=== PATIENT | female | born 1980 | race Two or more races ===

== ENCOUNTER 2020-05-09 10:42 | Outpatient (REF) | payer SELFPAY | END 2020-05-09 10:43 | disposition home or self-care (01) | LOC: HO.SCI 10:42 | PROVIDERS: Visit Provider Psychiatry & Neurology Neurology | DX: Z13.89 Encounter for screening for other disorder (principal) ==

== ENCOUNTER → 2020-05-21 14:02 | Outpatient (REF) | payer OTHER, SELFPAY | LOC: HO.SL 14:02 | PROVIDERS: PCP Nurse Practitioner Family; Visit Provider Psychiatry & Neurology Neurology | DX: R06.83 Snoring (principal); E66.9 Obesity, unspecified | CPT/HCPCS: 95806 ==

== ENCOUNTER → 2021-02-26 09:33 | Outpatient (BNVA) | payer OTHER, SELFPAY | PROVIDERS: PCP Nurse Practitioner Family; Referring Provider Nurse Practitioner Family; Visit Provider Nurse Practitioner Family | DX: R41.82 Altered mental status, unspecified (principal); G43.109 Migraine with aura, not intractable, without status migrainosus; G47.33 Obstructive sleep apnea (adult) (pediatric); E03.9 Hypothyroidism, unspecified; R53.83 Other fatigue | CPT/HCPCS: 99212 ==

== ENCOUNTER 2021-03-27 13:50 | Outpatient (REF) | payer OTHER, SELFPAY ==
--- NOTE | ~2021-03-27 | MR_ITS ---
EXAMINATION: MR BRAIN WITHOUT AND WITH CONTRAST CLINICAL INFORMATION: Left-sided facial pain and migraines. Vertigo x6 months. COMPARISON: CT scan of the sinuses 05/23/2020. TECHNIQUE: Multiplanar MR imaging of the brain was performed without and with contrast. A total of 10 mL Gadavist was utilized for this examination. FINDINGS: Postcontrast images reveal no abnormal intracranial mass or enhancement. There are small foci of dural ossification over both cerebral convexities with no associated pathological enhancement. There is no intracranial mass effect or midline shift. No abnormal extra-axial collection. Lateral and third ventricles are normal. No hydrocephalus. Midline structures including the cervicomedullary junction are normal. No acute bone marrow signal changes. There is no acute territorial infarct. No pathological magnetic susceptibility artifact. Intracranial vascular flow voids are maintained. There is no mastoid middle ear effusion. Mild paranasal sinus mucosal thickening primarily involving the ethmoid air cells. Globes and orbits are symmetric. MR/MR head/brain wo/w con IMPRESSION: Normal brain MRI.
== END 2021-03-27 13:51 | disposition home or self-care (01) ==
LOC: HO.MRI 13:50
PROVIDERS: Visit Provider Nurse Practitioner Family
DX: R53.83 Other fatigue (principal); G43.109 Migraine with aura, not intractable, without status migrainosus; R41.82 Altered mental status, unspecified
CPT/HCPCS: 70553; A9585

== ENCOUNTER → 2021-03-30 11:21 | Outpatient (BNVA) | payer OTHER, SELFPAY | PROVIDERS: PCP Nurse Practitioner Family; Visit Provider Nurse Practitioner Family | DX: G47.33 Obstructive sleep apnea (adult) (pediatric) (principal); G43.109 Migraine with aura, not intractable, without status migrainosus; R53.83 Other fatigue; R41.82 Altered mental status, unspecified | CPT/HCPCS: 99212 ==

== ENCOUNTER 2021-04-17 06:37 | Outpatient (REF) | payer OTHER, SELFPAY ==
--- NOTE | 2021-04-17 06:42 | EEG_ITS ---
This is a 16-channel EEG with an EKG lead. Patient is reported awake, drowsy, and asleep during the tracing. Background EEG rhythm is 8 to 12 hertz, 5 to 30 microvolt posteriorly, lower amplitude fast anteriorly during wakefulness. The patient transitioned into stage N1 to N2 sleep with no significant abnormality. Photic stimulation does not produce any significant abnormality. Hyperventilation is not performed. No sharp wave spikes or paroxysmal tendency noted. Cardiac lead does not reveal any significant abnormality. IMPRESSION: Unremarkable electroencephalogram including wakefulness and sleep. MD MARA Coburn/YENI / [id number]
== END 2021-04-17 06:38 | disposition home or self-care (01) ==
LOC: HO.NEURO 06:37
PROVIDERS: Visit Provider Nurse Practitioner Family
DX: R53.83 Other fatigue (principal)
CPT/HCPCS: 95819

== ENCOUNTER → 2021-04-27 13:36 | Outpatient (BNVA) | payer OTHER, SELFPAY | PROVIDERS: Visit Provider Nurse Practitioner Family | DX: Z13.89 Encounter for screening for other disorder (principal) ==

== ENCOUNTER → 2021-05-28 10:29 | Outpatient (BNVA) | payer OTHER, SELFPAY | PROVIDERS: PCP Nurse Practitioner Family; Visit Provider Nurse Practitioner Family | DX: G47.33 Obstructive sleep apnea (adult) (pediatric) (principal); G43.109 Migraine with aura, not intractable, without status migrainosus; R41.82 Altered mental status, unspecified; Z79.899 Other long term (current) drug therapy | CPT/HCPCS: 99212 ==

== ENCOUNTER → 2021-07-31 15:11 | Outpatient (BNVA) | payer OTHER, SELFPAY | PROVIDERS: PCP Nurse Practitioner Family; Visit Provider Nurse Practitioner Family | DX: G43.109 Migraine with aura, not intractable, without status migrainosus (principal); G47.33 Obstructive sleep apnea (adult) (pediatric); R41.82 Altered mental status, unspecified; Z79.899 Other long term (current) drug therapy | CPT/HCPCS: 99212 ==

== ENCOUNTER 2022-12-24 11:02 | Outpatient (AMB) | payer MEDICAID, SELFPAY ==
--- NOTE | 2022-12-24 11:03 | A.OFFVIS_ITS ---
Intake Vital Signs 12/24/22 11:04 Height 5 ft 4 in Weight 266 lb BMI 45.7 BP 110/78 Blood Pressure Location Rt brachial Position Sitting Pulse 74 Pulse Source Pulse Oximeter Pulse Oximetry (%) 98 Oxygen Delivery Method Room Air Intake Visit Reasons: Follow up for Migraines - Confirmed Intake Note: Patient presents for follow up migraines. Patient states horrible I'm still getting them I started documenting them i had 8 migraines in the month of September I was throwing up. Allergies diphenhydramine Allergy (Intermediate, Verified 12/24/22 11:08) HIVES Penicillins Allergy (Intermediate, Verified 12/24/22 11:08) HIVES HPI HPI Comments History of Present Illness Details 42-yr-old female presents for f/u visit. Pt has had an increase in her migraine intensity and severity since she has not had access to her Ajovy injections. Last Ajovy inj was in Sep. In the last month, she has had 6-7 severe migraine. The migraine is left sided throbbing pain, left eye pressure. Now has more photophobia, phonophobia, nausea, insomnia, and now some speech changes. Two were a/w passing out and convulsing. The convulsive episodes were her typical convulsive shaking x's 2 minutes. She has stopped Sertraline- made her feel weird. She was given Trazodone 100mg prn insomnia- about a month ago- using prn. The cLonazepam makes her sleep, but cannot wake up in the am.. Her is concerned that she is having seizures in her sleep, she is shaking in her sleep and sometimes biting her tongue. She is compliant with her Trileptal. Pt sttates she never had the 72 hr EEG [facility] Medical History (Updated 12/26/22 @ 22:27 by GIULIA Lynch) delivery due to maternal disorder Surgical History History of section Family History Father Hypertension Mother Hypertension Cancer Diabetes Social History Alcohol intake: never Patient Tobacco Use Status: Never used Tobacco Review of Systems Const All systems reviewed & are unremarkable except as noted in HPI and below Physical Exam Vital Signs: Last Vital Signs Pulse 74 12/24/22 11:04 BP 110/78 12/24/22 11:04 Pulse Ox 98 12/24/22 11:04 Oxygen Delivery Method Room Air 12/24/22 11:04 BMI result Body Mass Index 45.7 Const General: cooperative and no acute distress Orientation/consciousness: patient oriented x3 HEENT Head: Yes normocephalic Resp Effort & Inspection: normal respiratory effort and able to speak in complete sentences Neuro General: patient oriented x3, gait normal and CN's II-XI intact bilaterally Cognition (Neuro): normal cognition Motor exam (neuro): 5/5 motor strength present throughout Psych Appearance: grossly normal Mental Status: mental status grossly normal Speech and movement: Normal speech and movement present Affect: normal affect Attitude: cooperative Thought process: Normal thought process present Thought content: Normal thought content present Insight: Good insight present (Psych) Judgement: Good judgement present (Psych) Assessment & Plan Assessment & Plan (1) Migraine with aura: Code(s): G43.109 - Migraine with aura, not intractable, without status migrainosus (2) Seizure: Code(s): R56.9 - Unspecified convulsions (3) Obstructive sleep apnea: Comment: AHI 12/hr, 82%. Has not started APAP yet. Code(s): G47.33 - Obstructive sleep apnea (adult) (pediatric) (4) Sleep difficulties: Code(s): G47.9 - Sleep disorder, unspecified Plan For episodes of AMS/seizures-like activity: Continue Trileptal 600mg bid. Continue topiramate 100mg qhs. Will re-order 72 hour ambulatory EEG.. Pt should not drive. Future considerations: Increase Trileptal, consider adjuncting w/ another AED such as Fycompa. Referal to epileptologist. ? For migraine prevetion: Resume Ajovy 225mg sc q month for migraine prevention- as this was significantly effective. In the meantime, will bridge w/ samples of Qulipta 60mg qhs. Continue riboflavin 200 mg twice a day- for migraine prevention. Continue magnesium 400 mg daily at bedtime- for migraine prevention. Pt has had genetics consult- for ? FHM- results not currently available. Previously did not tolerate Amitriptyline or Propranolol. For acute migraine tx: Start Naratriptan prn. May use OTC NSAIDs prn. Previous acute tx trials: Sumatriptan- not tolerated. ? ? For SUDHEER/sleep- Stop Trazodone- may worsen headaches. Trial Lorazepam 0.5mg qhs prn. Stop Clonazepam 0.5mg tab- caused am sleepiness. Patient returned APAP.?Will monitor- consider re-initiating order. Samples given today: Ajovy 225 mg/ml autoinjector 1 225mg autoinjector given Instructions- adminitser 225mg sc today- pt will do at home Lot #[id number], Exp 01/08 Qulipta 60mg- 4 boxes (4 tabs/box- total 24 tabs) Instructions: 1 tab qhs until supply completed Lot # [id number], Exp 09/07 Orders: Orders EEG ambulatory 12/24/22 G43.109 - Migraine with aura, not intractable, without status migrainosus, R41.82 - Altered mental status, unspecified, R56.9 - Unspecified convulsions Medications: New naratriptan take 1/2 - 1 tab at onset of headache; if no relief may repeat 1 tab after at least 4 hrs; max = 2 tabs/24 hrs orally PRN; 30 days 12 tabs 6RF migraine headache lorazepam 0.5 mg PO BEDTIME 30 days PRN 30 tabs 3RF insomnia Refilled oxcarbazepine (Trileptal) 600 mg (2 x 300 mg) PO BID 30 days 120 tabs 6RF fremanezumab-vfrm (Ajovy) administer 225mg sc q month 225 mg (1.5 mL) subcut ONCE 30 days 1.5 mL 6RF Coding Level of Care Code Est Pt Level 4 (08021) Diagnoses Migraine with aura G43.109 Seizure R56.9 Obstructive sleep apnea G47.33 Sleep difficulties G47.9
[2022-12-24 11:04] VITALS: BP 110/78; PULSE 74; O2SAT 98; BMI 45.7
== END 2022-12-24 11:49 | disposition home or self-care (01) ==
PROVIDERS: PCP Nurse Practitioner Family; Visit Provider Nurse Practitioner Family
DX: G43.109 Migraine with aura, not intractable, without status migrainosus (principal); R56.9 Unspecified convulsions; G47.33 Obstructive sleep apnea (adult) (pediatric); G47.9 Sleep disorder, unspecified
CPT/HCPCS: 99214

== ENCOUNTER → 2022-12-24 11:02 | Outpatient (BNVA) | payer MEDICAID, SELFPAY | PROVIDERS: PCP Nurse Practitioner Family; Visit Provider Nurse Practitioner Family | DX: G43.109 Migraine with aura, not intractable, without status migrainosus (principal); G47.33 Obstructive sleep apnea (adult) (pediatric); G47.9 Sleep disorder, unspecified; R56.9 Unspecified convulsions | CPT/HCPCS: 99212 ==

== ENCOUNTER 2023-07-21 09:01 | Outpatient (AMB) | payer MEDICAID, SELFPAY ==
--- NOTE | 2023-07-21 09:30 | MHC.OFFVIS ---
Vital Signs 07/21/23 09:31 Height 5 ft 4 in Weight 272 lb BMI 46.7 Pulse 65 Pulse Source Pulse Oximeter Pulse Oximetry (%) 98 Oxygen Delivery Method Room Air Intake Visit Reasons: 3 mo f/u Migraines - CONF w/address Intake Note: Patient presents for 3 month f/u migraines. patient states [id number] are terrible. Allergies diphenhydramine Allergy (Intermediate, Verified 07/21/23 09:32) HIVES Penicillins Allergy (Intermediate, Verified 07/21/23 09:32) HIVES Medication List - Last Reconciled 07/21/23 by Fatemeh Bustamante, GIULIA buspirone 10 mg PO BID cetirizine 10 mg PO DAILY PRN clonazepam 2 mg PO For seizure activity lasting more than 2 minutes, may repeat x1 and call 911 30 days clonazepam 0.25 - 0.5 mg (0.5 - 1 x 0.5 mg) PO BEDTIME PRN 30 days fremanezumab-vfrm (Ajovy) 225 mg (1.5 mL) subcut ONCE 30 days ibuprofen 800 mg PO Q8H levothyroxine 75 mcg PO DAILY lorazepam 0.5 mg PO BEDTIME PRN 30 days magnesium oxide 400 mg PO BEDTIME 30 days methocarbamol 750 mg PO Q8H naproxen 500 mg PO Q12H PRN 30 days naratriptan take 1/2 - 1 tab at onset of headache; if no relief may repeat 1 tab after at least 4 hrs; max = 2 tabs/24 hrs orally PRN; 30 days oxcarbazepine (Trileptal) 600 mg (2 x 300 mg) PO BID 30 days propranolol 10 mg PO BID 30 days riboflavin (vitamin B2) (Vitamin B-2) 200 mg (2 x 100 mg) PO BID 30 days topiramate 100 mg (2 x 50 mg) PO BEDTIME 30 days trazodone 100 mg PO DAILY ubrogepant (Ubrelvy) 50 - 100 mg (0.5 - 1 x 100 mg) PO ONCE PRN 30 days HPI Comments Details: 43-yr-old female presents for f/u visit. Pt denies any significant interval medical changes. She has started seeing a new psychiatric provider at [facility]. Recently started on Buspar for anxiety. Psych is considering starting pt on ADHD tx- as pt is having more memory problems, forgetfulness. She went to [place] to go to a family . She forgot all her medications at home [place] the [place], including her Oxcarbazepine. She had a severe migraine with repeated seizure- was taken to the ER. States usually only has seizure when her migraines are worse. Once she has the seizure, the migraine almost breaks/releases, similar to if she vomits w/ migraine. Went to have 72 EEG- but was told it would not help as seizure activity is r/t migraine. Notes that once went home, the migarines were better when on her med regimen. Pt reports worsening headaches, especially in the last week. Had to miss work this week for the migraine. Having 4-5 migraine days per week. She is compliant w/ Ajovy, though was late this month d/t insurance issue- feels it is not fully effective. She stopped Topiramate- was causing more cognitive difficulties. Naratriptan is not effective. She thinks that the Qulipta 60mg sample we gave her, was more effective than Ajovy has been. [facility] Medical History (Updated 07/21/23 @ 10:32 by GIULIA Lynch) delivery due to maternal disorder Surgical History History of section Family History Father Hypertension Mother Hypertension Cancer Diabetes Social History Alcohol intake: never Patient Tobacco Use Status: Never used Tobacco Physical Exam Vital Signs: Last Vital Signs Pulse 65 07/21/23 09:31 Pulse Ox 98 07/21/23 09:31 Oxygen Delivery Method Room Air 07/21/23 09:31 BMI result Body Mass Index 46.7 Const General: cooperative and no acute distress Orientation/consciousness: patient oriented x3 Resp Effort & Inspection: normal respiratory effort and able to speak in complete sentences Neuro General: patient oriented x3 Cranial nerves: Yes CN's II-XII intact bilaterally Cognition (Neuro): normal cognition Psych Appearance: grossly normal Mental Status: mental status grossly normal Speech and movement: Normal speech and movement present Affect: normal affect Attitude: cooperative Assessment & Plan Assessment & Plan (1) Chronic migraine with aura: Comment: rare visual aura Code(s): G43.109 - Migraine with aura, not intractable, without status migrainosus Category: Medical (2) Seizure: Code(s): R56.9 - Unspecified convulsions Category: Medical (3) Sleep difficulties: Code(s): G47.9 - Sleep disorder, unspecified Category: Medical (4) Cognitive dysfunction: Comment: likely ADHD Code(s): F09 - Unspecified mental disorder due to known physiological condition Category: Medical Plan Reviewed note from pt's new psychiatric provider. Will trial pt on Adderall ER 10mg qam- in hopes this will lessen cognitive difficulties, which may benefit migraine control as well. Reviewed benefits/risks- to keep med secured. Will check in w/ pt in 10 days to assess effect. Will share resources for pt to read on strategies to optimize adult ADHD s/s. F/u w/ psychiatry as scheduled. For episodes of AMS/seizures-like activity: Breakthrough severe Migraine and Seizure while in [place]- likely d/t stress and not taking her medications as they were left at home. Continue Trileptal 600mg bid. Pt may hold topiramate 100mg qhs. Hold 72 hour ambulatory EEG.. Pt should not drive. Future considerations: Increase Trileptal, consider adjuncting w/ another AED such as Fycompa. Referal to epileptologist. ? For migraine prevention: Start Qulipta 60mg qhs- as pt did better on samples of Qulipta. Continue Ajovy 225mg sc q month- however once Qulipta available will stop Ajovy. Continue riboflavin 200 mg twice a day- for migraine prevention. Continue magnesium 400 mg daily at bedtime- for migraine prevention. Pt has had genetics consult- for ? FHM- results not currently available. Previously did not tolerate Amitriptyline or Propranolol. ? For acute migraine tx: Stop Naratriptan prn- ineffective. Trial Eletriptan 40mg prn. May use OTC NSAIDs prn. Previous acute tx trials: Sumatriptan- not tolerated. Narartriptan- ineffective. ? ? For SUDHEER/sleep- Lorazepam 0.5mg qhs prn. Previously tx trials- Pt previously stopped Trazodone- d/t this may worsen headaches. Clonazepam 0.5mg tab- caused am sleepiness. Patient returned APAP.?Will monitor- consider re-initiating ord Medications: New eletriptan take 1 tab at onset of headache; if no relief, may repeat 1 tab after at least 2 hrs; max = 2 tabs/24 hrs PO 30 days 14 tabs 6RF atogepant 60 mg PO DAILY 30 days 30 tabs 6RF dextroamphetamine-amphetamine 10 mg ER (Adderall XR) Partial Fill upon patient request. 10 mg PO QAM 14 days 14 caps 0RF Coding Level of Care Code Est Pt Level 4 (52996) Diagnoses Chronic migraine with aura G43.109 Seizure R56.9 Sleep difficulties G47.9 Cognitive dysfunction F09
[2023-07-21 09:31] VITALS: PULSE 65; O2SAT 98; BMI 46.7
== END 2023-07-21 10:24 | disposition home or self-care (01) ==
PROVIDERS: PCP Nurse Practitioner Family; Visit Provider Nurse Practitioner Family
DX: G43.E09 Chronic migraine with aura, not intractable, without status migrainosus (principal); R56.9 Unspecified convulsions; G47.9 Sleep disorder, unspecified; R41.89 Other symptoms and signs involving cognitive functions and awareness
CPT/HCPCS: 99214

== ENCOUNTER → 2023-07-21 09:01 | Outpatient (BNVA) | payer MEDICAID, SELFPAY | PROVIDERS: PCP Nurse Practitioner Family; Visit Provider Nurse Practitioner Family | DX: G43.109 Migraine with aura, not intractable, without status migrainosus (principal); R56.9 Unspecified convulsions; G47.9 Sleep disorder, unspecified; F09 Unspecified mental disorder due to known physiological condition | CPT/HCPCS: 99212 ==

== ENCOUNTER 2023-12-07 07:38 | Outpatient (AMB) | payer MEDICAID, SELFPAY ==
[2023-12-07 07:50] VITALS: BMI 47.0
--- NOTE | 2023-12-07 07:50 | MHC.OFFVIS ---
Vital Signs 12/07/23 07:50 Height 5 ft 4 in Weight 274 lb BMI 47.0 Intake Visit Reasons: 3 month F/U Intake Note: Patient presents for Allergies diphenhydramine Allergy (Intermediate, Verified 12/07/23 07:52) HIVES Penicillins Allergy (Intermediate, Verified 12/07/23 07:52) HIVES Medication List - Last Reconciled 12/07/23 by GIULIA Lynch atogepant 60 mg PO DAILY 30 days atogepant (Qulipta) 60 mg PO DAILY buspirone 10 mg PO BID buspirone 15 mg PO BID cetirizine 10 mg PO DAILY PRN clonazepam 2 mg PO For seizure activity lasting more than 2 minutes, may repeat x1 and call 911 30 days clonazepam 0.25 - 0.5 mg (0.5 - 1 x 0.5 mg) PO BEDTIME PRN 30 days dextroamphetamine-amphetamine 10 mg ER (Adderall XR) 10 mg PO QAM 14 days ibuprofen 800 mg PO Q8H levothyroxine 75 mcg PO DAILY lorazepam 0.5 mg PO BEDTIME PRN 30 days magnesium oxide 400 mg PO BEDTIME 30 days methocarbamol 750 mg PO Q8H mirabegron ER (Myrbetriq) 25 mg PO DAILY naproxen 500 mg PO Q12H PRN 30 days naratriptan take 1/2 - 1 tab at onset of headache; if no relief may repeat 1 tab after at least 4 hrs; max = 2 tabs/24 hrs orally PRN; 30 days oxcarbazepine (Trileptal) 600 mg (2 x 300 mg) PO BID 30 days propranolol 10 mg PO BID 30 days riboflavin (vitamin B2) (Vitamin B-2) 200 mg (2 x 100 mg) PO BID 30 days rizatriptan 5 - 10 mg (0.5 - 1 x 10 mg) PO Q2H PRN 21 days topiramate 100 mg (2 x 50 mg) PO BEDTIME 30 days trazodone 100 mg PO DAILY ubrogepant (Ubrelvy) 50 - 100 mg (0.5 - 1 x 100 mg) PO ONCE PRN 30 days HPI Comments Details: 43-yr-old female presents for f/u visit of migraine and seizure. Pt denies any significant interval medical changes. Her psychiatrist is now managing her ADHD- now on Adderall XR 20mg qam around 8am- which is helping her focus. She believes she had a seizure in June or July, as she fell on her stairs. This seizure was triggered by a bad headache. She was walking about the stairs, became dizzy, and lost her footing, fell and had a seizure. She is compliant w/ Trileptal at 10am and 10pm- notes that in the past she was previously forgetting a dose or was late taking it, but since being better at taking it every 12 hrs, she is feeling better seizure control. Pt also notes her PCP would like her to revisit her sleep apnea tx- previously dx'd w/ mild SUDHEER but was not able to use it and thus her CPAP was returned. She has had a weight gain of > 80lbs. She has snoring, sleep difficulties, restless/jumpy sleep, tongue/cheek biting, excessive daytime sleepiness- more so on days when she does not take her Adderral, but has constant fatigue even with the Adderall. In August, she had a [facility] ER eval- was given IV Compazine, magnesium, droperidol in addition to dexamethasone- which helped however she did not toelrtae one of the meds- caused a restlessness. Since the last visit, she started Qulipta 60mg po qhs. This has helped to reduce the frequency of her migraines, however she is still having 7 migraine days per month, some very severe where she cannot work. She did not receive the Eletriptan d/t insurance denial. She tried rizatriptan instead, however, this has not been effective. Currently using Aleve migraine- which takes the edge off. Baseline migraine characteristics: Starts as pain in left eye and progresses into the left side of head and if more severe moves into back of head/neck, a/w photophobia, phonophobia, nausea, activity intolerance, when more severe vomiting, dizziness, slowed speech. [facility] Medical History (Updated 12/11/23 @ 19:17 by GIULIA Lynch) delivery due to maternal disorder Surgical History History of section Family History Father Hypertension Mother Hypertension Cancer Diabetes Social History Alcohol intake: never Patient Tobacco Use Status: Never used Tobacco Physical Exam Vital Signs: BMI result Body Mass Index 47.0 Const General: cooperative and no acute distress Orientation/consciousness: patient oriented x3 Resp Effort & Inspection: normal respiratory effort and able to speak in complete sentences Neuro Other: Photophobic General: patient oriented x3 Cranial nerves: Yes CN's II-XII intact bilaterally Cognition (Neuro): normal cognition Gait exam (Neuro): Normal gait present Motor exam (neuro): 5/5 motor strength present throughout Psych Appearance: grossly normal Mental Status: mental status grossly normal Speech and movement: Normal speech and movement present Affect: normal affect Attitude: cooperative Assessment & Plan Assessment & Plan (1) Chronic migraine with aura: Comment: rare visual aura Code(s): G43.109 - Migraine with aura, not intractable, without status migrainosus Category: Medical (2) Seizure: Code(s): R56.9 - Unspecified convulsions Category: Medical (3) Sleep difficulties: Code(s): G47.9 - Sleep disorder, unspecified Category: Medical (4) Cognitive dysfunction: Comment: likely ADHD Code(s): F09 - Unspecified mental disorder due to known physiological condition Category: Medical (5) Snoring: Code(s): R06.83 - Snoring Category: Medical (6) Excessive daytime sleepiness: Comment: [place] sleepiness scale - 12 Code(s): G47.19 - Other hypersomnia Category: Medical (7) BMI 45.0-49.9, adult: Code(s): Z68.42 - Body mass index [BMI] 45.0-49.9, adult Category: Medical Plan Psychiatry is now managing pt's cognitive/mood tx. For episodes of AMS/seizures-like activity: Continue Trileptal 600mg po q 12 hrs. Stressed compliance. Pt may hold topiramate 100mg qhs. Hold 72 hour ambulatory EEG.. Pt should not drive or engage in high risk activities x's 6 months following last seizure activity. Previous tx's: Topiramate worsened cognitive difficulties. ? For migraine prevention: Continue Qulipta 60mg qhs. Continue riboflavin 200 mg twice a day- for migraine prevention. Continue magnesium 400 mg daily at bedtime- for migraine prevention. Pt has had genetics consult- for ? FHM- results not currently available. Previously did not tolerate Amitriptyline or Propranolol. Topiramate worsened cognitive difficulties. Ajovy lost effectiveness. ? For acute migraine tx: Rizatriptan prn- ineffective. Trial Sumatriptan 5mg nasal spray- MR x's 1, as migraine is a/w nausea. Trial Sumatriptan 6mg sc inj, MR in 1 hr- max 12mg/day, as migraine is a/w nausea. Trial Diclofenac 50mg po bid prn. Trial Metoclopramide 5mg q 4hrs prn headache/nausea. May use OTC NSAIDs prn. Previous acute tx trials: Sumatriptan tab- not tolerated. Narartriptan- ineffective. Rizatriptan- ineffective. ? ? For SUDHEER/sleep- Pt advsied to under in-lab sleep study to assess status of sleep apnea, as pt has worsening sleep s/s, snoring, daytime sleepiness in setting of significant weight gain. Lorazepam 0.5mg qhs prn. Previously tx trials- Pt previously stopped Trazodone- d/t this may worsen headaches. Clonazepam 0.5mg tab- caused am sleepiness. Patient previously returned last APAP machine. Will follow-up upon review of above and patient to follow-up in clinic in 4-6 months or sooner prn.? Orders: Orders RT PSG in-lab sleep study 12/07/23 G47.19 - Other hypersomnia, G47.33 - Obstructive sleep apnea (adult) (pediatric), G47.9 - Sleep disorder, unspecified, R06.83 - Snoring, Z68.42 - Body mass index [BMI] 45.0-49.9, adult Medications: New sumatriptan 5 mg/actuation into one nostril; if headache remains, may repeat dose into other nostril once after at least 2 hours 5 mg intranasal Q2-4H 30 days PRN 6 ea 3RF migraine headache MDD 40mg/day metoclopramide HCl 5 mg PO Q4-6H 30 days PRN 30 tabs 3RF migraine, nausea and vomiting insulin syringe-needle U-100 w/ sumatriptan solution. As directed 50 ea 5RF sumatriptan succinate may repeat x's 1 in 1 hr 6 mg (0.5 mL) subcut ONCE 28 days PRN 10 mL 3RF migraine headache MDD 12mg diclofenac potassium 50 mg PO BID 30 days PRN 60 tabs 3RF migraine headache Discontinued naproxen Discontinued Reason: Doctor's Order 500 mg PO Q12H 30 days PRN 30 tabs 6RF for headache naratriptan Discontinued Reason: Doctor's Order take 1/2 - 1 tab at onset of headache; if no relief may repeat 1 tab after at least 4 hrs; max = 2 tabs/24 hrs orally PRN; 30 days 12 tabs 6RF migraine headache rizatriptan max 2 tabs per day or 4 tabs per week Discontinued Reason: Doctor's Order 5 - 10 mg (0.5 - 1 x 10 mg) PO Q2H 21 days PRN 12 tabs 3RF migraine headache Coding Level of Care Code Est Pt Level 4 (81248) Diagnoses Chronic migraine with aura G43.109 Seizure R56.9 Sleep difficulties G47.9 Cognitive dysfunction F09 Snoring R06.83 Excessive daytime sleepiness G47.19 BMI 45.0-49.9, adult Z68.42
== END 2023-12-07 08:49 | disposition home or self-care (01) ==
PROVIDERS: PCP Nurse Practitioner Family; Visit Provider Nurse Practitioner Family
DX: G43.109 Migraine with aura, not intractable, without status migrainosus (principal); R56.9 Unspecified convulsions; G47.9 Sleep disorder, unspecified; R41.89 Other symptoms and signs involving cognitive functions and awareness; R06.83 Snoring; G47.19 Other hypersomnia; E66.9 Obesity, unspecified; Z68.42 Body mass index [BMI] 45.0-49.9, adult
CPT/HCPCS: 99214

== ENCOUNTER → 2023-12-07 07:38 | Outpatient (BNVA) | payer MEDICAID, SELFPAY | PROVIDERS: PCP Nurse Practitioner Family; Visit Provider Nurse Practitioner Family | DX: G43.109 Migraine with aura, not intractable, without status migrainosus (principal); G47.9 Sleep disorder, unspecified; G47.19 Other hypersomnia; R56.9 Unspecified convulsions; R06.83 Snoring; F09 Unspecified mental disorder due to known physiological condition | CPT/HCPCS: 99212 ==

== ENCOUNTER 2024-06-28 08:02 | Outpatient (AMB) | payer MEDICAID, SELFPAY ==
--- OUTSIDE RECORDS SUMMARY | 2024-06-28 08:05 | XMS_ITS | Encounter Summary ---
Author Organization [facility] Address [address] [facility] [place] [address] Care Team Providers Care Telemetry Technician Name Role Phone Riya Mcmanus GIULIA Primary Care Provider [phone] Reason for Referral * Radiology Services (Routine) - New Request Specialty Diagnoses / Procedures Referred By Lj mcneil Referred To Contact Radiology Diagnoses Laboratory tests ordered as part of a complete physical exam (CPE) Procedures REFERRAL FOR MAMMOGRAM Inez Liu FNP [address] [place] [address] Phone: tel: fax: Referral ID Status Reason Start Date Expiration Date Visits Requested Visits Authorized [id number] New Request Continuity of Care 06/27/2024 08/26/2024 1 1 * Gynecology (Routine) - New Request Specialty Diagnoses / Procedures Referred By Lj mcneil Referred To Contact Gynecology Diagnoses Laboratory tests ordered as part of a complete physical exam (CPE) Inez Liu FNP [address] [place] [address] Phone: tel: fax: Referral ID Status Reason Start Date Expiration Date Visits Requested Visits Authorized [id number] New Request Evaluate and Treat 06/27/2024 06/27/2025 1 1 Reason for Visit * Reason Comments Complete Physical Exam Encounter Details Date Type Department Care Team (Late st Contact Info) Description 06/27/2024 8:40 AM EDT [facility] [address] [place] [address] Alexa Inez, GIULIA [address] [place] [address] Laboratory tests ordered as part of a complete physical exam (CPE) (Primary Dx); Hypothyroidism, unspecified type; Screening for colon cancer Social History Tobacco Use Types Packs/Day Years Used Date Smoking Tobacco: Never Passive Smoke Exposure: Never Smokeless Tobacco: Never Tobacco Cessation:Counseling Given: Not Answered Alcohol Use Standard Drinks/Week Comments Not Currently 0 (1 standard drink = 0.6 oz pur e alcohol) Social Connections Answer Date Recorded Connectedness 1 09/12/2023 Financial Resource Strain Answer Date R ecorded Financial Resource Strain 1 2023 Stress Answer Date Recorded Stress 1 09/12/2023 Physical Activity Answer Date Recorded Physical Activity 0 10/20/2018 Food Insecurity Answer Date Recorded Food 2 11/18/2023 Transportation Needs Answer Date Record ed Transportation 2 11/18/2023 Housing Stability Answer Date Recorded Housing 2 11/18/2023 Safety and Environment Answer Date Guilherme rded Safety 1 06/27/2024 Utilities Answer Date Recorded Utilities 2 11/18/2023 Employment Answer Date Recorded Stress 0 10/20/2018 Comments No Sex and Gender Information Value Date Recorded Sex Assigned at Female 07/05/2018 11:19 AM PDT Legal Sex Female 10:29 AM PDT Gender Identity Female 07/05/2018 11:19 AM PDT Sexual Orientation Straight 07/05/2018 11 :19 AM PDT documented as of this encounter Last Filed Vital Signs Vital Sign Reading Time Taken Comments Blood Pressure 122/86 06/27/2024 8:40 AM EDT Pulse 87 06/27/2024 8:40 AM EDT Temperature 36.8 ??C (98.3 ??F) 06/27/2024 8:40 AM ED T Respiratory Rate 18 06/27/2024 8:40 AM EDT Oxygen Saturation 98% 06/27/2024 8:40 AM EDT Inhaled Oxygen Concentration - - Weight 118.8 kg (262 lb) 06/27/2024 8:40 AM EDT Height 165.1 cm (5' 5 ) 06/27/2024 8:40 AM EDT Body Mass Index 43.6 06/27/2024 8:40 AM EDT documented in this encounter Progress Notes * Inez Liu, GIULIA - 06/27/2024 8:40 AM EDT Demetra Blanchard is a 43 year old female here for CPE Complete Physical Exam Deputy Clerk: None, provider speaks patient's familiar language Concerns: Carpal tunnel surgery bilateral wrist and right elbow 3 weeks ago healing well Soft bm after each meals for the past 16 years; no abdominal pain, no nausea or vomiting Thyroid US negative ROS noncontributory unless otherwise mentioned above Health Maintenance: Hospitalizations within the last year:na Colonoscopy: cologuard Mammogram: refer Last Pap Smear: refer Patient's last menstrual period was 04/24/2024. Eye Exam:up to date Dental Visit: @[id number]@ Weight management:BMI follow up plan: The patient was counseled regarding nutrition and physical activity. Tobacco Intervention:provided smoking cessation counseling Depression screen: PHQ-9 Total Score (Auto Calculated) 0 at 06/27/2024 8:40 AM 06/27/2024 8:40 AM Did patient decline PHQ screening? No Little interest or pleasure in doing things Not at all Feeling down, depressed or hopeless [include irritable if under 18] Not at all PHQ2 Score 0 Little interest or pleasure in doing things Not at all Feeling down, depressed or hopeless [include irritable if under 18] Not at all Trouble falling or staying asleep, or sleeping too much Not at all Feeling tired or having little energy Not at all Poor appetite or overeating Not at all Feeling bad about yourself - or that you are a failure or have let yourself or your family down Notat all Trouble concentrating on things, such as reading the newspaper or watching television? Not at all Moving or speaking so slowly that other people could have noticed? Or the opposite - being so fidgety or restless that you have been moving around a lot more than usual Not at all Thoughts you would be better off or of hurting yourself in some way Not at all If you checked off any problems, how difficult have these problems made it for you to do your work,take care of things at home, or get along with other people? Not difficult at all PHQ-9 Total Score (Auto Calculated) 0 Depression Severity: None-minimal Depression screening:DEPRESSION FU PROVIDED ([facility]): Assessed, follow-up as needed The 10-year ASCVD risk score (Lan RAMOS, et al., 2019) is: 0.4% Patient Active Problem List Diagnosis Asthma ([facility]) Hypothyroidism Thyroid nodule Family history of breast cancer Concentration deficit Primary insomnia Chronic migraine without aura without status migrainosus, not intractable Posttraumatic stress disorder Low back pain at multiple sites Stress incontinence Cervical pain Chronic bilateral thoracic back pain Positive QuantiFERON-TB Gold test Current mild episode of major depressive disorder without prior episode ([facility]) Major depressive disorder, recurrent episode, moderate, with severe anxious distress ([facility]) Tricompartment osteoarthritis of both knees SUDHEER on CPAP Moderate persistent asthma with status asthmaticus ([facility]) Class 3 severe obesity due to excess calories with serious comorbidity and body mass index (BMI) of40.0 to 44.9 in adult Past Surgical History: Procedure Laterality Date SECTION 2014 Current Outpatient Medications on File Prior to Visit Medication Sig Dispense Refill phentermine (ADIPEX-P) 37.5 mg tablet Take 1 Tablet by mouth every morning before breakfast 30 Tablet 2 busPIRone (BUSPAR) 15 mg tablet Take 1 Tablet by mouth 3 (three) times daily for 90 days 90 Tablet 2 dextroamphetamine-amphetamine (ADDERALL XR) 30 mg 24 hr capsule Take 1 Capsule by mouth every morning for 90 days 90 Capsule 0 OXcarbazepine (TRILEPTAL) 600 mg tablet Take 1 Tablet by mouth 2 (two) times daily 60 Tablet 1 fluoride, sodium, (SF 5000 PLUS) 1.1 % crea Place in mouth once daily apply a thin ribbon on toothbrush. [place] thoroughly once daily for two minutes, preferably at bedtime. After use expectorate. Forbest results, do not eat, drink, or rinse for 30 minutes. 51 g 0 levalbuterol tartrate (XOPENEX HFA) 45 mcg/actuation inhaler Inhale 2 Puffs into the lungs every 4 (four) hours as needed for wheezing or shortness of breath 15 g 1 ammonium lactate (AMLACTIN) 12 % cream APPLY TO FEET DOS VECES AL D A Authorized by: REDD BUSTILLOS celecoxib (CELEBREX) 200 mg capsule TAKE 1 CAPSULE BY MOUTH ONCE DAILY NEEDED FOR PAIN TAKE WITHFOOD DO NOT TAKE ADDITIONAL NSAIDS Authorized by: RACHAEL ABDI MYRBETRIQ 50 mg Tb24 TOME 1 TABLETA POR V A ORAL TODOS LOS D DO NOT CRUSH OR CHEW Authorized by:SUMANTH DAO pregabalin (LYRICA) 75 mg capsule TAKE 1 CAPSULE TWICE A DAY BY ORAL ROUTE DIRECTED FOR 30 DAYS,FOR PAIN. Authorized by: RACHAEL ABDI BREO ELLIPTA 100-25 mcg/dose dsdv INHALE 1 PUFF INTO THE LUNGS ONCE DAILY RINSE MOUTH AFTER USE 60 Each 1 omeprazole (PRILOSEC) [address] capsule TAKE 1 CAPSULE BY MOUTH 2 (TWO) TIMES DAILY NEEDED FOR HEARTBURN 180 Capsule 1 BD LUER-YAKOV SYRINGE 3 mL 25 x 5/8 syrg USE WITH SUMATRIPTAN DIRECTED Authorized by: NATHEN DENNIS diclofenac potassium (CATAFLAM) 50 mg tablet TAKE 1 TABLET BY MOUTH TWICE DAILY NEEDED FOR MIGRAINE HEADACHE Authorized by: NATHEN DENNIS hydrocortisone 2.5 % ointment See Admin Instructions PLEASE SEE ATTACHED FOR DETAILED DIRECTIONS Authorized by: REDD BUSTILLOS ketoconazole (NIZORAL) 2 % shampoo APPLY TO SCALP TWICE A WEEK, LEAVE ON FOR 5 MIN, THEN RINSE Authorized by: REDD BUSTILLOS metroNIDAZOLE (METROCREAM) 0.75 % cream APLIQUE A LA ALANNA DOS VECES AL D A Authorized by: REDD BUSTILLOS SUMAtriptan (IMITREX) 5 mg/actuation nasal spray USE 5MG NASALLY EVERY 2-4HRS NEEDED FOR MIGRAINE, MAX DAILY DOSE 40MG/DAY. Authorized by: NATHEN DENNIS SUMAtriptan (IMITREX) 6 mg/0.5 mL injection See Admin Instructions PLEASE SEE ATTACHED FOR DETAILEDDIRECTIONS Authorized by: NATHEN DENNIS triamcinolone (KENALOG) 0.1 % lotion APPLY TO SCALP DOS VECES AL D A CUANDO SEA NECESARIO FOR FLARES, DECREASE SYMPTOMS IMPROVE Authorized by: REDD BUSTILLOS melatonin 5 mg tab TAKE 2 TABLETS BY MOUTH NIGHTLY AT BEDTIME NEEDED (SLEEP) FOR UP TO 180 DAYS 360 Tablet 0 atogepant (QULIPTA) 60 mg tab Take 60 mg by mouth daily oxymetazoline (NASAL DECONGESTANT, OXYMETAZL,) 0.05 % nasal spray Place 2 Sprays into the nostril(s) 2 (two) times daily as needed for other reason (nasal bleed) 30 mL 2 acetaminophen (TYLENOL) 500 mg tablet TAKE 2 TABLETS BY MOUTH EVERY 8 HOURS NEEDED FOR PAIN 180 Tablet 0 cetirizine (ZYRTEC) 10 mg tablet TOME NOEL TABLETA TODOS LOS SANCHEZ 90 Tablet 1 fluticasone propionate (FLONASE) 50 mcg/actuation nasal spray Place 1 Moran in both nostrils 2 (two) times daily 16 g 2 No current facility-administered medications on file prior to visit. Allergies Allergen Reactions Diphenhydramine Hcl SOB Penicillin G SOB Social History Occupational History Not on file Tobacco History Tobacco Use Smoking Status Never Passive exposure: Never Smokeless Tobacco Never Social History Substance and Sexual Activity Sexual Activity Not on file Social History Substance and Sexual Activity Drug Use Not Currently Having periods Objective: Vitals: 06/27/24 0840 BP: 122/86 Pulse: 87 Resp: 18 Temp: 98.3 ??F (36.8 ??C) TempSrc: Oral SpO2: 98% Weight: 262 lb (118.8 kg) Height: 5' 5 (1.651 m) Body mass index is 43.6 kg/m??. Physical Exam Constitutional: Appearance: Normal appearance. HENT: Head: Normocephalic and atraumatic. Right Ear: Tympanic membrane, ear canal and external ear normal. Left Ear: Tympanic membrane, ear canal and external ear normal. Nose: Nose normal. Mouth/Throat: Mouth: Mucous membranes are moist. Eyes: Pupils: Pupils are equal, round, and reactive to light. Cardiovascular: Rate and Rhythm: Normal rate and regular rhythm. Pulmonary: Effort: Pulmonary effort is normal. Breath sounds: Normal breath sounds. Abdominal: General: Bowel sounds are normal. Palpations: Abdomen is soft. Musculoskeletal: General: Normal range of motion. Cervical back: Normal range of motion. Skin: General: Skin is warm. Comments: Incision site dry and intact Neurological: General: No focal deficit present. Mental Status: She is alert and oriented to person, place, and time. Psychiatric: Mood and Affect: Mood normal. Assessment and Plan: Z00.00 Laboratory tests ordered as part of a complete physical exam (CPE) (primary encounter diagnosis) Plan : BLOOD COUNT COMPLETE AUTO&AUTO DIFRNTL WBC COMPREHENSIVE METABOLIC PANEL LIPIDS W RFLX TO DIRECT LDL HGA1C W/EAG TSH W/RFLX FREE T4 URINALYSIS, COMPLETE W/REFLEX TO CULTURE HEPB VACCINE ADULT 2/4 DOSE SCHEDULE FOR IM USE REFERRAL TO GYNECOLOGY REFERRAL FOR MAMMOGRAM LAB COLOGUARD?? COLON CANCER SCREEN AMB E03.9 Hypothyroidism, unspecified type Plan : LEVOTHYROXINE 75 MCG TABLET - TOME 1 TABLETA POR VIA ORAL TODOS LOS SANCHEZ Z12.11 Screening for colon cancer Plan : LAB COLOGUARD?? COLON CANCER SCREEN AMB Plan I am having Demetra Blanchard start on L. acidophilus/Bifid. animalis and psyllium. I am alsohaving her maintain her fluticasone, cetirizine, acetaminophen, oxymetazoline, Qulipta, melatonin, diclofenac potassium, hydrocortisone, ketoconazole, metroNIDAZOLE, SUMAtriptan, SUMAtriptan, BD Luer- Yakov Syringe, triamcinolone, omeprazole, Breo Ellipta, ammonium lactate, Myrbetriq, pregabalin, celecoxib, levalbuterol tartrate, fluoride (sodium), phentermine, busPIRone, dextroamphetamine-amphetamine, OXcarbazepine, and levothyroxine. Stay away from foods that trigger symptoms. Eat high-fiber foods. Drink plenty of fluids. Exercise regularly. Get enough sleep. Assessment and plan discussed with patient. Patient agrees with plan. Questions answered. Return in about 3 months (around 09/27/2024). documented in this encounter Miscellaneous Notes * Patient Instructions - GIULIA Falcon - 06/27/2024 9:06 AM EDT If you are not able to keep your appointment please call 24-48 hours before your appointment to cancel or reschedule. documented in this encounter Plan of Treatment Upcoming Encounters Date Type Department Care Team (Late st Contact Info) Description 07/19/2024 11:00 AM EDT Telemedicine Visit [address] [phone] Raul Eldridge, RD [address] [place] [address] 07/19/2024 11:30 AM EDT /MH Visits [address] [phone] Mindi Montoya, PMHNP [address] [place] [address] 08/01/2024 9:00 AM EDT Office Visit [address] [phone] Inez Liu FNP [facility] [place] [address] 10/23/2024 9:00 AM EDT Office Visit [address] [phone] Robinson Jiang [address] [place] [phone] Scheduled Orders Name Type Priority Associated Diagnoses Orde r Schedule REFERRAL FOR MAMMOGRAM Imaging Routine Laboratory tests ordered as part of a complete physical exam (CPE) Ordered: 06/27/2024 LAB COLOGUARD?? COLON CANCER SCREEN AMB Lab Routine Laboratory tests ordered as part of a complete physical exam (CPE) Screening for colon cancer Ordered: 06/27/2024 Scheduled Referrals Name Type Priority Associated Diagnoses Orde r Schedule REFERRAL TO GYNECOLOGY Referral Routine Laboratory tests ordered as part of a complete physical exam (CPE) Ordered: 06/27/2024 documented as of this encounter Procedures Procedure Name Priority Date/Time Associated Diagnosis Comments HGA1C W/EAG Routine 06/27/2024 9:34 AM EDT Laboratory tests ordered as part of a complete physical exam (CPE) TSH W/RFLX FREE T4 Routine 06/27/2024 9: 34 AM EDT Laboratory tests ordered as part of a complete physical exam (CPE) LIPIDS W RFLX TO DIRECT LDL Routine 06/27/2024 9:34 AM EDT Laboratory tests ordered as part of a complete physical exam (CPE) URINALYSIS, COMPLETE W/REFLEX TO CULTURE Routine 06/27/2024 9:34 AM EDT Laboratory tests ordered as part of a complete physical exam (CPE) RFLX - REFLEXIVE URINE CULTURE Routine 06/27/2024 9:34 AM EDT BLOOD COUNT COMPLETE AUTO&AUTO DIFRNTL WBC Routine 06/27/2024 9:34 AM EDT Laboratory tests ordered as part of a complete physical exam (CPE) COMPREHENSIVE METABOLIC PANEL Routine 06/27/2024 9:34 AM EDT Laboratory tests ordered as part of a complete physical exam (CPE) documented in this encounter Results * RFLX - REFLEXIVE URINE CULTURE (06/27/2024 9:34 AM EDT) REFLEXIVE URINE CULTURE See Below [employer] [facility] Comment:NO CULTURE INDICATED 06/27/2024 9:34 AM EDT 06/27/2024 9:35 AM EDT Narrative [facility] [employer] [facility] - 06/28/2024 6:32 AM EDT FASTING:YES Inez PLATT LAB - NO BLOOD DRAW Edited Result - Final [facility] [address] [address], [employer] [address] [address] * (ABNORMAL) URINALYSIS, COMPLETE W/REFLEX TO CULTURE (06/27/2024 9:34 AM EDT) COLOR DARK YELLOW YELLOW [facility] APPEARANCE TURBID(A) CLEAR [facility] SPECIFIC GRAVITY 1.035 1.001 - 1.035 [facility] URINE PH < OR = 5.0(A) 5.0 - 8.0 [facility] GLUCOSE NEGATIVE NEGATIVE [facility] BILIRUBIN NEGATIVE NEGATIVE [facility] [place] [employer] KETONES NEGATIVE NEGATIVE [facility] OCCULT BLOOD 3+(A) NEGATIVE [facility] URINE PROTEIN 2+(A) NEGATIVE [facility] NITRITE NEGATIVE NEGATIVE [facility] LEUKOCYTE ESTERASE NEGATIVE NEGATIVE [facility] URINE LEUKOCYTES 0-5 0 - 5 /HPF [facility] RBC > OR = 60(A) < OR = 2 [facility] SQUAMOUS EPITHELIAL CELLS 10-20(A) < OR = 5 /HPF [facility] BACTERIA MANY(A) NONE SEEN [facility] CALCIUM OXALATE CRYSTALS MANY(A) NONE OR FEW [facility] URIC ACID CRYSTALS FEW NONE OR FEW [employer] HYALINE CAST 6-10(A) NONE SEEN /LPF [facility] SEE NOTE See Below [employer] [facility] Comment: This urine was analyzed for the presence of WBC, RBC, bacteria, casts, and other formed elements. Only those elements seen were reported. Urine Urine specimen / Unknown 06/27/2024 9:34 AM EDT 06/27/2024 9:35 AM EDT Narrative [facility] - 06/28/2024 6:32 AM EDT FASTING:YES Inez [facility]ATT [facility] - NO BLOOD DRAW Edited Result - Final [facility] [address] [address], [facility] [address] [address] * TSH W/RFLX FREE T4 (06/27/2024 9:34 AM EDT) TSH W/REFLEX TO FT4 1.50 0.40 - 4.50 mIU/L [facility] Comment: ?Reference Range ?> or = 20 Years ??0.40-4.50 ? Ranges ?First trimester ?0.26-2.66 ?Second trimester ?? 0.55-2.73 ?Third trimester ?0.43-2.91 Blood Blood / Unknown 06/27/2024 9 :34 AM EDT 06/27/2024 9:35 AM EDT Narrative [facility] - 06/28/2024 6:32 AM EDT FASTING:YES Inez [facility]ATT [facility] - BLOOD DRAW Ameya benson Result - Final [facility] [address] [place] [address], [facility] [address] [place] [phone] * HGA1C W/EAG (06/27/2024 9:34 AM EDT) HEMOGLOBIN A1C 5.4 <5.7 % [employer] Comment: For the purpose of screening for the presence of diabetes: <5.7% ? Consistent with the absence of diabetes 5.7-6.4% ?Consistent with increased risk for diabetes ?(prediabetes) > or =6.5% ??Consistent with diabetes This assay result is consistent with a decreased risk of diabetes. Currently, no consensus exists regarding use of hemoglobin A1c for diagnosis of diabetes in children. According to [place] Diabetes Association (ADA) guidelines, hemoglobin A1c <7.0% represents optimal control in non- diabetic patients. Different metrics may apply to specific patient populations. Standards of Medical Care in Diabetes(ADA). ?? EAG (MG/DL) 108 mg/dL [facility] [employer] EAG (MMOL/L) 6.0 mmol/L [employer] D [employer] Blood Blood / Unknown 06/27/2024 9 :34 AM EDT 06/27/2024 9:35 AM EDT Narrative [facility] - 06/28/2024 6:32 AM EDT FASTING:YES us Inez [facility] - BLOOD DRAW Ameya benson Result - Final [facility] [address] [address], [facility] [address] [address] * LIPIDS W RFLX TO DIRECT LDL (06/27/2024 9:34 AM EDT) [facility] Signature CHOLESTEROL, TOTAL 165 <200 mg/dL [facility] HDL CHOLESTEROL 60 > OR = 50 mg/dL [facility] TRIGLYCERIDES 127 <150 mg/dL [facility] LDL-CHOLESTEROL 83 99 mg/dL (calc) [facility] Comment: Reference range: <100 Desirable range <100 mg/dL for primary prevention; ?? <70 mg/dL for patients with CHD or diabetic patients with > or = 2 CHD risk factors. LDL-C is now calculated using the Izaiah-Abi calculation, which is a validated novel method providing better accuracy than the Friedewald equation in the estimation of LDL-C. Izaiah SS et al. HUNG. 2013;310(19): 4201-9957 (http://education.YoQueVos/faq/IUM702) CHOL/HDLC RATIO 2.8 <5.0 (calc) [facility] NON-HDL CHOLESTEROL 105 <130 mg/dL (calc) [facility] Comment: For patients with diabetes plus 1 major ASCVD risk factor, treating to a non-HDL-C goal of <100 mg/dL (LDL-C of <70 mg/dL) is considered a therapeutic option. Blood Blood / Unknown 06/27/2024 9 :34 AM EDT 06/27/2024 9:35 AM EDT Narrative [employer] [facility] - 06/28/2024 6:32 AM EDT FASTING:YES us Inez PLATT LAB - BLOOD DRAW Fin al Result [facility] [address] [address], [facility] [address] [place] [address] * COMPREHENSIVE METABOLIC PANEL (06/27/2024 9:34 AM EDT) [facility] GLUCOSE 90 65 - 99 mg/dL [facility] Comment: ?Fasting reference interval UREA NITROGEN (BUN) 15 7 - 25 mg/dL [facility] CREATININE (blood) 0.63 0.50 - 0.99 mg/dL [facility] EGFR 112 > OR = 60 mL/min/1. 73m2 [facility] BUN/CREATININE RATIO SEE NOTE: [facility] Comment: ?? Not Reported: BUN and Creatinine are within ?? reference range. ? SODIUM 136 135 - 146 mmol/L [facility] POTASSIUM 3.5 3.5 - 5.3 mmol/L [facility] CHLORIDE 104 98 - 110 mmol/L [facility] CARBON DIOXIDE 26 20 - 32 mmol/L [facility] CALCIUM 9.0 8.6 - 10.2 mg/dL [facility] PROTEIN, TOTAL 7.6 6.1 - 8.1 g/dL [facility] ALBUMIN 4.2 3.6 - 5.1 g/dL [facility] GLOBULIN 3.4 1.9 - 3.7 g/dL (calc) [facility] ALBUMIN/GLOBULI N RATIO 1.2 1.0 - 2.5 (calc) [facility] BILIRUBIN, TOTAL 0.3 0.2 - 1.2 mg/dL [facility] ALKALINE PHOSPHATASE 89 31 - 125 U/L [facility] AST 12 10 - 30 U/L [facility] ALT 15 6 - 29 U/L [facility] Blood Blood / Unknown 06/27/2024 9 :34 AM EDT 06/27/2024 9:35 AM EDT Narrative [employer] [facility] - 06/28/2024 6:32 AM EDT FASTING:YES Inez TORRESP LAB - BLOOD DRAW Fin al Result [facility] [address] [address], [facility] [address] [place] [address] * (ABNORMAL) BLOOD COUNT COMPLETE AUTO&AUTO DIFRNTL WBC (06/27/2024 9:34 AM EDT) Pathologist [facility] WHITE BLOOD CELL COUNT 6.4 3.8 - 10.8 Thousand/ uL [employer] RED BLOOD CELL COUNT 4.08 3.80 - 5.10 Million/u L [employer] HEMOGLOBIN 11.8 11.7 - 15.5 g/dL [facility] HEMATOCRIT 37.1 35.0 - 45.0 % [employer] MCV 90.9 80.0 - 100.0 fL [employer] MCH 28.9 27.0 - 33.0 pg [employer] MCHC 31.8(L) 32.0 - 36.0 g/dL [employer] Comment: For adults, a slight decrease in the calculated MCHC value (in the range of 30 to 32 g/dL) is most likely not clinically significant; however, it should be interpreted with caution in correlation with other red cell parameters and the patient's clinical condition. RDW 14.3 11.0 - 15.0 % [employer] PLATELET COUNT 338 140 - 400 Thousand/ uL [employer] MPV 9.9 7.5 - 12.5 fL [employer] ABSOLUTE NEUTROPHILS 3,187 1,500 - 7,800 cells/uL [employer] ABSOLUTE LYMPHOCYTES 2,554 850 - 3,900 cells/uL [employer] ABSOLUTE MONOCYTES 448 200 - 950 cells/uL [employer] ABSOLUTE EOSINOPHILS 141 15 - 500 cells/uL [employer] ABSOLUTE BASOPHILS 70 0 - 200 cells/uL [employer] NEUTROPHILS PCT 49.8 % [facility] [employer] LYMPHOCYTES 39.9 % [facility] MONOCYTES 7.0 % [facility] EOSINOPHILS 2.2 % [facility] [employer] BASOPHILS 1.1 % [facility] Blood Blood / Unknown 06/27/2024 9 :34 AM EDT 06/27/2024 9:35 AM EDT Narrative [facility] - 06/28/2024 6:32 AM EDT FASTING:YES Inez PLATT LAB - BLOOD DRAW Ameya benson Result - Final [facility] [address] [address], [facility] [facility] [address] [place] [address] documented in this encounter Visit Diagnoses Diagnosis Laboratory tests ordered as part of a complete physical exam (CPE)- Primary Hypothyroidism, unspecified type Screening for colon cancer Special screening for malignant neoplasms, colon documented in this encounter Additional Health Concerns Assessment Noted Time PHQ-9 Depression Total Score: 0 06/28/19 25 8:40 AM PDT documented as of this encounter Care Teams Telemetry Technician Relationship Specialty Start Date End Date Riya Mcmanus FNP [address] [place] [id number] PCP - General Internal Medicine 07/05/18 documented as of this encounter
--- OUTSIDE RECORDS SUMMARY | 2024-06-28 08:05 | XMS_ITS ---
Author Organization [facility] Address [address] [place] [address] Care Team Providers Care Screw Machine Operator Single Spindle Name Role Phone Riya McmanusP Primary Care Provider [phone] Asthma Program Status:Enrolled (Active) Start date:02/02/2024 Enrollment date:02/02/2024 Case Team Name Relationship Phone Beto Parrish PharmD (Responsible Staff) [phone] Continued Care and Services Coordination
--- OUTSIDE RECORDS SUMMARY | 2024-06-28 08:05 | XMS_ITS | Encounter Summary ---
Author Organization [facility] Address [address] [place] [address] Care Team Providers Care Die Sinking Machine Operator Name Role Phone Riya Mcmanus [facility] Primary Care Provider [phone] Encounter Details Date Type Department Care Team ([facility] st Contact Info) Description 10/02/2021 Dental Interim Note [facility] [address] [place] [phone] [facility] [address] [place] [address] Social History Tobacco Use Types Packs/Day Years Used Date Smoking Tobacco: Never Smokeless Tobacco: Never Alcohol Use Standard Drinks/Week Comments Not Currently 0 (1 standard drink = 0.6 oz pur e alcohol) Social Connections Answer Date Recorded Social Connections and Isolation 2 10/31/2020 Financial Resource Strain Answer Date R ecorded Financial Resource Strain 0 2020 Stress Answer Date Recorded Stress 0 10/31/2020 Physical Activity Answer Date Recorded Physical Activity 0 10/20/2018 Food Insecurity Answer Date Recorded Food 0 10/31/2020 Transportation Needs Answer Date Record ed Transportation 0 10/31/2020 Housing Stability Answer Date Recorded Housing 0 10/31/2020 Safety and Environment Answer Date Guilherme rded Safety 1 10/31/2020 Utilities Answer Date Recorded Utilities 0 10/31/2020 Employment Answer Date Recorded Stress 0 10/20/2018 Comments No Sex and Gender Information Value Date Recorded Sex Assigned at Female 07/05/2018 11:19 AM PDT Legal Sex Female 10:29 AM PDT Gender Identity Female 07/05/2018 11:19 AM PDT Sexual Orientation Straight 07/05/2018 11 :19 AM PDT COVID-19 Exposure Response Date Recorded In the last 10 days, have yo u been in contact with someone who was confirmed or suspected to have Coronavirus/COVID-19? No / Unsure 09/09/2021 3:47 PM EDT documented as of this encounter Plan of Treatment Upcoming Encounters Date Type Department Care Team (Late st Contact Info) Description 07/19/2024 11:00 AM EDT Telemedicine Visit [address] [phone] Raul Eldridge, [address] [place] [address] 07/19/2024 11:30 AM EDT /MH Visits [address] [phone] Mindi Montoya, PMHNP [address] [place] [address] 08/01/2024 9:00 AM EDT Office Visit [address] [phone] Inez Liu FNP [address] [place] [address] 10/23/2024 9:00 AM EDT Office Visit [facility] [address] [place] [phone] Robinson Jiang [address] [place] [phone] documented as of this encounter Visit Diagnoses Not on filedocumented in this encounter Additional Health Concerns Assessment Noted Time PHQ-9 Depression Total Score: 15 09/09/2 022 3:58 PM PDT documented as of this encounter Care Teams Die Sinking Machine Operator Relationship Specialty Start Date End Date Riya Mcmanus FNP [address] [place] [phone] PCP - General Internal Medicine 07/05/18 documented as of this encounter
--- OUTSIDE RECORDS SUMMARY | 2024-06-28 08:05 | XMS_ITS | Clinical Summary ---
Author Organization [facility] Address [address] [place] [address] Care Team Providers Care Drop Wire Hanger Name Role Phone Riya Mcmanus GIULIA Primary Care Provider [phone] Source Comments PLEASE NOTE, if this patient is a minor, it may be UNLAWFUL to discuss sensitive information that is contained in these records (such as FAMILY PLANNING, MENTAL HEALTH or SUBSTANCE ABUSE) with the minor patient's parent or other person without the patient's specific authorization.[facility] Allergies Active Allergy Reactions Criticality Noted Date Comments Diphenhydramine Hcl SOB 07/05/2018 Penicillin G SOB 07/05/2018 Medications fluticasone propionate (FLONASE) 50 mcg/actuation nasal sprayIndicatio ns:Rhinitis, unspecified type Place 1 [place] in both nostrils 2 (two) times daily 16 g 2 04/25/19 22 Active cetirizine (ZYRTEC) 10 mg tabletIndicati ons:Allergy, subsequent encounter TOME NOEL SUA TODOS [place] SANCHEZ 90 Tablet 1 08/17/19 23 Active acetaminophen (TYLENOL) 500 mg tabletIndicati ons:Viral upper respiratory tract infection TAKE 2 TABLETS BY MOUTH EVERY 8 HOURS NEEDED FOR PAIN 180 Tablet 09/01/19 24 Active oxymetazoline (NASAL DECONGESTANT, OXYMETAZL,) 0.05 % nasal sprayIndicatio ns:Epistaxis Place 2 Sprays into the nostril(s) 2 (two) times daily as needed for other reason (nasal bleed) 30 mL 2 10/28/19 24 Active atogepant (QULIPTA) 60 mg tab Take 60 mg by mouth daily Active melatonin 5 mg tabIndications :Primary insomnia TAKE 2 TABLETS BY MOUTH NIGHTLY AT BEDTIME NEEDED (SLEEP) FOR UP TO 180 DAYS 360 Tablet 12/19/19 Active diclofenac potassium (CATAFLAM) 50 mg tablet TAKE 1 TABLET BY MOUTH TWICE DAILY NEEDED FOR MIGRAINE HEADACHE Authorized by: NATANAEL DENNIS 01/15/20 Active hydrocortisone 2.5 % ointment See Admin Instructions PLEASE SEE ATTACHED FOR DETAILED DIRECTIONS Authorized by: REDD BUSTILLOS 01/15/20 Active ketoconazole (NIZORAL) 2 % shampoo APPLY TO SCALP TWICE A WEEK, LEAVE ON FOR 5 MIN, THEN RINSE Authorized by: REDD BUSTILLOS 01/13/20 Active metroNIDAZOLE (METROCREAM) 0.75 % cream APLIQUE A LA ALANNA DOS VECES AL D A Authorized by: REDD BUSTILLOS 01/25/20 Active SUMAtriptan (IMITREX) 5 mg/actuation nasal spray USE 5MG NASALLY EVERY 2-4HRS NEEDED FOR MIGRAINE, MAX DAILY DOSE 40MG/DAY. Authorized by: NATANAEL DENNIS 01/15/20 Active SUMAtriptan (IMITREX) 6 mg/0.5 mL injection See Admin Instructions PLEASE SEE ATTACHED FOR DETAILED DIRECTIONS Authorized by: NATANAEL DENNIS 12/26/19 Active BD LUER-WILLIAM SYRINGE 3 mL 25 x 5/8 syrg USE WITH SUMATRIPTAN DIRECTED Authorized by: NATANAEL DENNIS 01/25/20 Active triamcinolone (KENALOG) 0.1 % lotion APPLY TO SCALP DOS VECES AL D A CUANDO SEA NECESARIO FOR FLARES, DECREASE SYMPTOMS IMPROVE Authorized by: REDD BUSTILLOS 01/15/20 Active omeprazole (PRILOSEC) [address] capsuleIndicat ions:Heartburn TAKE 1 CAPSULE BY MOUTH 2 (TWO) TIMES DAILY NEEDED FOR HEARTBURN 180 Capsule 1 03/21/19 25 Active BREO ELLIPTA 100-25 mcg/dose dsdvIndication s:Moderate persistent asthma with status asthmaticus ([facility]) INHALE 1 PUFF INTO THE LUNGS ONCE DAILY RINSE MOUTH AFTER USE 60 Each 1 05/17/19 25 Active ammonium lactate (AMLACTIN) 12 % cream APPLY TO FEET DOS VECES AL D A Authorized by: REDD BUSTILLOS 05/11/19 25 Active MYRBETRIQ 50 mg Tb24 TOME 1 TABLETA POR V A ORAL TODOS LOS D DO NOT CRUSH OR CHEW Authorized by: SUMANTH DAO 03/20/19 25 Active pregabalin (LYRICA) 75 mg capsule TAKE 1 CAPSULE TWICE A DAY BY ORAL ROUTE DIRECTED FOR 30 DAYS, FOR PAIN. Authorized by: RACHAEL ABDI 04/20/19 25 Active celecoxib (CELEBREX) 200 mg capsule TAKE 1 CAPSULE BY MOUTH ONCE DAILY NEEDED FOR PAIN TAKE WITH FOOD DO NOT TAKE ADDITIONAL NSAIDS Authorized by: RACHAEL ABDI 04/20/19 25 Active levalbuterol tartrate (XOPENEX HFA) 45 mcg/actuation inhalerIndicat ions:Moderate persistent asthma with status asthmaticus ([facility]) Inhale 2 Puffs into the lungs every 4 (four) hours as needed for wheezing or shortness of breath 15 g 1 05/22/19 25 Active fluoride, sodium, (SF 5000 PLUS) 1.1 % creaIndication s:Encounter for dental examination Place in mouth once daily apply a thin ribbon on toothbrush. [place] thoroughly once daily for two minutes, preferably at bedtime. After use expectorate. For best results, do not eat, drink, or rinse for 30 minutes. 51 g 05/26/19 25 Active phentermine (ADIPEX-P) 37.5 mg tabletIndicati ons:Hypothyroi dism, unspecified type,Morbid obesity with BMI of 40.0-44.9, adult ([facility]) Take 1 Tablet by mouth every morning before breakfast 30 Tablet 2 06/09/19 25 Active busPIRone (BUSPAR) 15 mg tabletIndicati ons:Posttrauma tic stress disorder Take 1 Tablet by mouth 3 (three) times daily for 90 days 90 Tablet 2 06/08/19 25 2024 Active dextroamphetam ine-amphetamin e (ADDERALL XR) 30 mg 24 hr capsuleIndicat ions:Attention deficit disorder (ADD) in adult Take 1 Capsule by mouth every morning for 90 days 90 Capsule 06/08/19 25 2024 Active OXcarbazepine (TRILEPTAL) 600 mg tabletIndicati ons:Seizure (HCC-CMS) Take 1 Tablet by mouth 2 (two) times daily 60 Tablet 1 06/08/19 25 Active levothyroxine 75 mcg tabletIndicati ons:Hypothyroi dism, unspecified type TOME 1 TABLETA POR VIA ORAL TODOS LOS SANCHEZ 90 Tablet 1 06/28/19 25 Active L. acidophilus/Bi fid. animalis 10 billion cell capsule Take 1 Capsule by mouth once daily for 90 days 90 Capsule 06/28/19 25 2024 Active psyllium (METAMUCIL) packet Take 1 Packet by mouth once daily for 90 days 30 Packet 2 06/28/19 25 2024 Active levothyroxine 75 mcg tabletIndicati ons:Hypothyroi dism, unspecified type TOME 1 TABLETA POR VIA ORAL TODOS [place] SANCHEZ 90 Tablet 1 10/24/19 24 2024 Discontinued(R eorder (E-Cancel Not Sent)) OXcarbazepine (TRILEPTAL) 600 mg tabletIndicati ons:Seizure (HCC-CMS) Take 1 Tablet by mouth 2 (two) times daily 60 Tablet 1 01/03/20 24 2024 Discontinued(R eorder (E-Cancel Not Sent)) busPIRone (BUSPAR) 15 mg tabletIndicati ons:Posttrauma tic stress disorder Take 1 Tablet by mouth 3 (three) times daily for 90 days 90 Tablet 2 02/09/20 24 2024 Discontinued(R eorder (E-Cancel Not Sent)) dextroamphetam ine-amphetamin e (ADDERALL) 5 mg tabletIndicati ons:Attention deficit disorder (ADD) in adult Take 2 Tablets by mouth once daily with lunch for 90 days 180 Tablet 03/22/19 25 2024 Discontinued(Q uantity/Dosage and/or Sig change) dextroamphetam ine-amphetamin e (ADDERALL XR) 20 mg 24 hr capsuleIndicat ions:Attention deficit disorder (ADD) in adult Take 1 Capsule by mouth every morning for 90 days 90 Capsule 04/26/19 25 2024 Discontinued(Q uantity/Dosage and/or Sig change) tirzepatide, weight loss, (ZEPBOUND) 2.5 mg/0.5 mL pnijIndication s:Hypothyroidi sm, unspecified type,Morbid obesity with BMI of 40.0-44.9, adult ([facility]) Inject 2.5 mg into the skin once a week 6.5 mL 05/29/19 25 2024 Discontinued Active Problems Problem Noted Date Diagnosed Date Class 3 severe obesity due t o excess calories with serious comorbidity and body mass index (BMI) of 40.0 to 44.9 in adult 02/02/2024 Moderate persistent asthma w ith status asthmaticus ([facility]) 10/28/2023 SUDHEER on CPAP 06/17/2023 Tricompartment osteoarthritis of both knees 04/14 Overview (05/03/2023): 04/27/2023: [facility]; Xray of both knees: FINDINGS: There is no evidence of acute or healing fracture, dislocation or bone lesion. Small tricompartmental osteophytes with mild patellofemoral compartment joint space narrowing. No evidence of joint effusion. IMPRESSION: Mild degenerative changes. No evidence of acute osseous abnormality. Major depressive disorder, r ecurrent episode, moderate, with severe anxious distress ([facility]) 10/22/2022 Current mild episode of hallie r depressive disorder without prior episode ([facility] V[facility]) 10/08/2022 Positive QuantiFERON-TB Gold test 06/18/2022 Overview (06/17/2023): Seen at [facility]: per note at [facility] on 04/25/2023: pt. noted of + QFT with arlette whitehead MD would like to repeat QFT in 4 months and if still+ may consider LTBI therapy Cervical pain 11/11/2021 Overview (11/11/2021): 06/23/2021: [facility]: MRI of cervical: FINDINGS: VERTEBRAL BODIES AND PARASPINAL SOFT TISSUES: There is anatomic alignment of the vertebral bodies. There is mild narrowing of intervertebral disc height at C4-C5 and C5-C6 and contour and no fractures are demonstrated. Overall, marrow signal is homogenous. There is mild prominence of the bilateral palatine tonsils, which is nonspecific. There are mildly prominent lymph nodes in the neck bilaterally. CERVICOMEDULLARY JUNCTION AND VISUALIZED POSTERIOR FOSSA: The craniocervical and posterior fossa structures are normal. Accounting for artifact, spinal cord signal appears normal. SPINAL LEVELS: C2-C3: The facet joints appear normal bilaterally. Posterior disc contour is normal. There is no spinal cord compression or central stenosis. The neural foramina are patent bilaterally. C3-C4: The facet joints appear normal bilaterally. Posterior disc contour is normal. There is no spinal cord compression or central stenosis. The neural foramina are patent bilaterally. C4-C5: The facet joints appear normal. There is a small posterior disc protrusion which is slightly eccentrically more prominent on the left. There is some effacement of the CSF ventral to the spinal cord, but there is no spinal cord compression or central stenosis. There is mild left foraminal narrowing. C5-C6: The facet joints appear normal. There is a broad-based posterior disc protrusion with mild minimal of the ventral thecal sac but there is no spinal cord compression or central stenosis. The neural foramina are patent bilaterally. C6-C7: The facet joints appear normal. There is a broad-based posterior disc protrusion with effacement of CSF ventral to the spinal cord without spinal cord compression or central stenosis. The neural foramina are patent bilaterally. C7-T1: The facet joints appear normal bilaterally. Posterior disc contour is normal. There is no spinal cord compression or central stenosis. The neural foramina are patent bilaterally. IMPRESSION: 1. There are broad-based posterior disc protrusions at C5-C6 and C6-C7 without cord compression or central stenosis. The neural foramina are patent bilaterally. 2. There is a small posterior disc protrusion eccentrically more prominent on the left at C4-C5. There is no central stenosis or cord compression. There is mild left foraminal narrowing. 3. There are mildly prominent tonsils and cervical lymph nodes, likely reactive. Correlate clinically. Chronic bilateral thoracic back pain 11/11/2021 Overview (11/11/2021): 06/23/2021: [facility]: Thoracic MRI: FINDINGS: VERTEBRAL BODIES AND PARASPINAL STRUCTURES: There is a mild dextroscoliosis. There is mild narrowing of intervertebral disc height at multiple levels in the mid thoracic spine anteriorly. There are degenerative endplate contour changes with fatty endplate signal changes at T7-T8 and mild edematous endplate signal changes are seen anteriorly at T6-T7. There are fatty endplate changes at the adjacent endplates at T8-T9. There is mild loss of vertebral body height of T7 toward the right which appears chronic. Apparent mild increased T2 signal Vertebral body heights are maintained at other levels. There are no acute fractures. Overall, marrow signal is homogenous. The paravertebral and visualized posterior thoracic and superior retroperitoneal structures are unremarkable. The conus is at the level of L1. Accounting for artifact, spinal cord signal appears normal. SPINAL LEVELS: There are no significant posterior intervertebral disc protrusions. Mild posterior protrusions are seen at T7-T8 and T8-T9 as well as at T10-T11 and T11-T12. There is no central stenosis or cord compression the neural foramina are patent. T1-T2: Normal. IMPRESSION: 1. There are no acute fractures or subluxations. 2. There are minimal spondylitic changes. 3. There is no spinal cord compression or central stenosis. Low back pain at multiple sites 09/22/2021 Overview (11/11/2021): 06/19/2021:[facility]: MRI of lumbar: FINDINGS: Coronal Alignment: Mild thoracolumbar levocurvature noted. Sagittal Alignment: Normal. Lumbosacral Junction: Normal. 5 crf-nhx-fyloxve lumbar-type vertebra. Vertebral Bodies: Normal height. Disc Spaces and Endplates: Xtlrbdee-xw-ibjagd disc space height loss asymmetric to the left at L5-S1 with disc desiccation and mild spondylosis. Disc desiccation at L4-L5 and L3-L4 also noted with minor spondylosis, with Schmorl's nodes at L4-L5. There is minor spondylosis at L1-L2 and L2-L3 without significant disc space height loss with disc desiccation. Mild discogenic degenerative changes and spondylosis are seen at T8-T9 and T9-T10 and minor spondylosis at T10-T11 and T11-T12. Spinal Canal: No abnormal developmental findings. Bone Marrow: No significant marrow-replacing process or aggressive bone marrow edema. There are type I degenerative marrow signal changes along the endplates on the right at L4-L5. Conus Medullaris: Terminates at L1. Morphology and signal is normal. Intradural Nerve Roots: Within normal limits. SPINAL LEVELS: L5-S1: Diffuse disc bulging slightly asymmetric to the left with slight flattening of the ventral dural sac and mild facet hypertrophic changes bilaterally without significant spinal canal stenosis. Moderate left-sided neural foraminal stenosis is noted without definite neural impingement. L4-L5: Broad-based central disc protrusion with right lateral foraminal component and mild flattening of the central dural sac without significant facet arthrosis or canal stenosis. No significant neural foraminal stenosis. L3-L4: Mild disc bulging and a superimposed shallow right subarticular disc protrusion with slight flattening of the dural sac asymmetric to the right and minimal narrowing of the right subarticular zone, without significant facet arthrosis, central canal or neural foraminal stenosis. L2-L3: Normal disc contour. No facet arthrosis, canal or neural foraminal stenosis. L1-L2: Normal disc contour. No facet arthrosis, canal or neural foraminal stenosis. Paraspinal/Retroperitoneal: The visualized paravertebral soft tissues appear grossly unremarkable. IMPRESSION: 1. Mild thoracolumbar levocurvature noted with discogenic degenerative changes between L3-L4 and L5-S1 inclusive, most apparent at L5-S1. 2. Disc bulging asymmetric to the left at L5-S1 and mild facet arthrosis with moderate left-sided neural foraminal stenosis without definite neural impingement. 3. Broad-based shallow central disc protrusion at L4-L5 with small right inferior foraminal disc protrusion without neural impingement, canal or neural foraminal stenosis and minor disc bulging with right paramedian disc protrusion at L3-L4 with slight narrowing of the right subarticular zone at this level. 4. Lower thoracic degenerative changes as discussed above. Stress incontinence 09/22/2021 Posttraumatic stress disorder 04/25/2020 Concentration deficit 09/02/2019 Primary insomnia 09/02/2019 Family history of breast cancer 03/11/2019 Chronic migraine without aur a without status migrainosus, not intractable 04/25/2004 Overview (06/17/2023): Sees neurologist. 08/2021 and 02/2023: EEG test negative. Per genetic counselor at [facility]: 08/2021:by Kristina Black GC on September 10, 2021 15:16 EDT Ms. Kely Blanchard's genetic testing results from the Familial Hemiplegic Migraine panel at [facility] were negative. The following 7 genes were analyzed AT, AT, OGASZ4P, PRRT2, SCN1A, SCL1A3, SCL2A1, and no mutations were found. Therefore her medical management should be based on her personal and family history. At this time there is no further genetic testing I would recommend for Ms. Kely Blanchard. 01/12/2021: [facility]: CT of head: .IMPRESSION: No evidence of acute intracranial abnormality or significant change from 11/30/2019. Asthma ([facility]) Hypothyroidism Thyroid nodule Overview (11/23/2018): 11/2018: US of thyroid: 7 mm single nodule at rt thyroid. Redo US in 1 to 2 yrs. Resolved Problems Problem Noted Date Diagnosed Date Resolved Date Bleeding from the nose 05/19/202010/03 Encounters Date Type Department Care Team Description 06/27/2024 8:40 AM EDT Office Visit [address] [phone] Inez Liu FNP Laboratory tests ordered as part of a complete physical exam (CPE) (Primary Dx); Hypothyroidism, unspecified type; Screening for colon cancer 06/20/2024 11:00 AM EDT / Visits [address] [phone] Alexia Cortez LCSW Posttraumatic stress disorder (Primary Dx); Major depressive disorder, recurrent episode, moderate, with severe anxious distress ([facility]); Primary insomnia; Attention deficit disorder (ADD) in adult; Seizure ([facility]) 06/14/2024 11:00 AM EDT Telemedicine Visit [address] [phone] Class 3 severe obesity due to excess calories with serious comorbidity and body mass index (BMI) of 40.0 to 44.9 in adult (Primary Dx) 06/11/2024 Interim Notes [address] [phone] Hermilo Irby MA 06/07/2024 10:30 AM EDT /MH Visits [address] [phone] Mindi Montoya PMHNP Posttraumatic stress disorder (Primary Dx); Major depressive disorder, recurrent episode, moderate, with severe anxious distress (HCC-CMS); Primary insomnia; Attention deficit disorder (ADD) in adult; Seizure (HCC-CMS) 05/28/2024 8:40 AM EDT Telemedicine Visit [address] [phone] Joie Mojica PA-C Class 3 severe obesity due to excess calories with serious comorbidity and body mass index (BMI) of 40.0 to 44.9 in adult (Primary Dx); Hypothyroidism, unspecified type; Morbid obesity with BMI of 40.0-44.9, adult (HCC-CMS); Thyroid nodule; Bilateral carpal tunnel syndrome 05/25/2024 9:00 AM EDT Office Visit [facility] [address] [place] [phone] Fabi Anne, SUZAN Encounter for dental examination (Primary Dx); Moderate persistent asthma with status asthmaticus ([facility]); Reversible pulpitis 05/18/2024 9:40 AM EDT Office Visit [facility] [address] [place] [phone] Beto Parrish PharmD Moderate persistent asthma with status asthmaticus ([facility]-H[facility]) (Primary Dx); Class 3 severe obesity due to excess calories with serious comorbidity and body mass index (BMI) of 40.0 to 44.9 in adult; Medication management 05/09/2024 11:00 AM EDT /MH Visits [address] [phone] Alexia Cortez LCSW Posttraumatic stress disorder (Primary Dx); Major depressive disorder, recurrent episode, moderate, with severe anxious distress (HCC-CMS); Primary insomnia; Attention deficit disorder (ADD) in adult; Seizure (HCC-CMS) 04/26/2024 10:40 AM EDT Telemedicine Visit [address] [phone] Class 3 severe obesity due to excess calories with serious comorbidity and body mass index (BMI) of 40.0 to 44.9 in adult ([facility]) (Primary Dx) 04/25/2024 11:00 AM EDT / Visits [facility] [address] [place] [phone] Alexia Cortez LCSW Posttraumatic stress disorder (Primary Dx); Major depressive disorder, recurrent episode, moderate, with severe anxious distress ([facility]); Primary insomnia; Attention deficit disorder (ADD) in adult; Seizure ([facility]) 04/20/2024 9:40 AM EST Office Visit [facility] [address] [place] [phone] Robinson Jiang Encounter for dental examination and cleaning without abnormal findings (Primary Dx) from Last 3 Months Immunizations Immunization Administration Dates Next Due Flu, Preservative Free 10/31/2020,02/29/2020 Hep B,adult,adjuvanted (HEPLISAV) 2024,10/28/2023,06/18/2022(Deferr ed: Contraindication - Pt has infection/UTI) PFIZER COVID VACCINE, PURPLE CAP, 12+ 03/21/2020 PNEUMOCOCCAL CONJUGATE PCV 2 0 (Prevnar) 10/28/2023 PNEUMOCOCCAL POLYSACCHARIDE PPV23 (Pneumovax 23) 03/09/2019 TDAP 03/09/2019 Family History Medical History Relation Name Comments Depression Brother tachycardia Diabetes Brother tachycardia Pancreatic cancer Brother tachycardia Post traumatic stress disorder Brother tachycardi a Cancer Father lung cancer Breast cancer Maternal Grandmother Breast cancer Mother Depression Mother Diabetes Mother Heart Problems Mother Kidney Stones Mother Post traumatic stress disorder Mother Thyroid Disease Mother Breast cancer Other 1 aunt Breast cancer Other 2 cousin maternal Depression Sister tachycardia Kidney Stones Sister tachycardia Ovarian cancer Sister tachycardia Post traumatic stress disorder Sister tachycardi a Thyroid Disease Sister tachycardia Relation Name Status Comments Brother tachycardia Alive Father Maternal Grandmother Mother Alive Other 1 aunt Alive Other 2 cousin maternal Alive Sister tachycardia Alive Social History Tobacco Use Types Packs/Day Years [...] Orientation Straight 07/05/2018 11 :19 AM PDT Last Filed Vital Signs Vital Sign Reading [...] Mass Index 43.6 06/27/2024 8:40 AM EDT Plan of Treatment Upcoming Encounters Date Type Department Care Team (Late st Contact Info) Description 07/19/2024 11:00 AM EDT Telemedicine Visit [facility] [address] [place] [phone] Raul Eldridge, RD [address] [place] [address] 07/19/2024 11:30 AM EDT /MH Visits [facility] [address] [place] [phone] Mindi Montoya, PMHNP [address] [place] [phone] 08/01/2024 9:00 AM EDT Office Visit [facility] [address] [place] [phone] Inez Liu, GIULIA [address] [place] [address] 10/23/2024 9:00 AM EDT Office Visit [facility] [address] [place] [phone] Robinson Jiang [address] [place] [phone] Health Maintenance Due Date Last Done Comments Dental FMX/Pano 1979 HPV Screening 1980 Pap Smear 03/09/2022 03/09/2019 [id number] ( season) 2023 021, 03/21/2020 Imm-Influenza (#1) 2023 10/31/2020, 02/29/2020 Cervical Cancer Screening 03/09/2024 Pap + HPV 03/09/2024 03/09/2019 Diabetes Screening 06/13/2024 06/27/2024, 0 06/27/2024, 06/14/2023, Additional history exists TSH Monitoring 06/13/2024 06/27/2024, 05/17, 11/30/2022, Additional history exists Breast Cancer Screening (Mammogram) 07/14/2024 07/15/2023, 07/05/2022, 12/09/2020, Additional history exists Depression Monitoring 09/27/2024 06/27/2024 , 10/28/2023, 04/26/2023, Additional history exists Tobacco Screening 02/01/2025 02/02/2024 Dental BW 04/22/2025 04/20/2024, 07/15, 01/12/2023, Additional history exists Dental Examination 04/22/2025 04/20/2024, 0 07/30/2023, 07/07/2022 Dental Perio Charting 04/22/2025 04/20/2024 , 07/30/2023, 01/12/2023, Additional history exists Dental Prophy 04/22/2025 04/20/2024, 07/15, 01/12/2023, Additional history exists Annual Preventive Care Visit 06/27/2025, 06/14/2023, 06/11/2022, Additional history exists Anxiety Screening 06/27/2025 06/27/2024 Hypertension Screening (#1) 06/27/2025 Relationship Safety Screening/Counseling 06/27/2025 06/27/2024, 06/14/2023, 06/11/2022, Additional history exists Lipid Screening 06/13/2026 06/27/2024, 05/17, 06/11/2022, Additional history exists Imm-DTaP/Tdap/Td (2 - Td or Tdap) 03/09/2029 020 HIV Screening Completed 10/20/2018 Hepatitis C Screening Completed 02/29/2020 Imm-Pneumococcal Completed 10/28/2023, 03/09/2019 Alcohol and Drug Screen Completed 03/16/19, 04/26/2023, 06/11/2022, Additional history exists Imm-Hepatitis B Completed 06/27/2024, 10/28/2023 Cervical Ablation/Cold-Knife Conization Discontinued Cervical Cryotherapy Discontinued Colposcopy Discontinued Endometrial Biopsy Discontinued Excision/Leep Discontinued HPV Genotyping Discontinued Vaginal Pap Discontinued Vulvoscopy Discontinued Procedures Procedure Name Priority Date/Time Associated Diagnosis Comments RFLX - REFLEXIVE URINE CULTURE Routine 06/27/2024 9:34 AM EDT URINALYSIS, COMPLETE W/REFLEX TO CULTURE Routine 06/27/2024 9:34 AM EDT Laboratory tests ordered as part of a complete physical exam (CPE) TSH W/RFLX FREE T4 Routine 06/27/2024 9: 34 AM EDT Laboratory tests ordered as part of a complete physical exam (CPE) HGA1C W/EAG Routine 06/27/2024 9:34 AM EDT Laboratory tests ordered as part of a complete physical exam (CPE) LIPIDS W RFLX TO DIRECT LDL Routine 06/27/2024 9:34 AM EDT Laboratory tests ordered as part of a complete physical exam (CPE) COMPREHENSIVE METABOLIC PANEL Routine 06/27/2024 9:34 AM EDT Laboratory tests ordered as part of a complete physical exam (CPE) BLOOD COUNT COMPLETE AUTO&AUTO DIFRNTL WBC Routine 06/27/2024 9:34 AM EDT Laboratory tests ordered as part of a complete physical exam (CPE) CASE PRESENTATION SUBS DTL & EXTENSIVE TX PLN Routine 05/25/2024 9:00 AM EDT Reversible pulpitis LIMITED ORAL EVALUATION - PROBLEM FOCUSED Routine 05/25/2024 9:00 AM EDT Reversible pulpitis BITEWINGS - FOUR RADIOGRAPHIC IMAGES Routine 04/20/2024 9:40 AM EST Encounter for dental examination and cleaning without abnormal findings INTRAORAL - PERIAPICAL FIRST RADIOGRAPHIC IMAGE Routine 04/20/2024 9:40 AM EST Encounter for dental examination and cleaning without abnormal findings DENTAL CASE MANAGEMENT - MOTIVATIONAL INTV Routine 04/20/2024 9:40 AM EST Encounter for dental examination and cleaning without abnormal findings PROPHYLAXIS - ADULT Routine 04/20/2024 9 :40 AM EST Encounter for dental examination and cleaning without abnormal findings COMP PERIODONTAL EVALUATION - NEW/EST PATIENT Routine 04/20/2024 9:40 AM EST Encounter for dental examination and cleaning without abnormal findings PERIODIC ORAL EVALUATION ESTABLISHED PATIENT Routine 04/20/2024 9:40 AM EST Encounter for dental examination and cleaning without abnormal findings CARIES RISK ASSESSMENT & DOC FINDING LOW RISK Routine 04/20/2024 9:40 AM EST Encounter for dental examination and cleaning without abnormal findings NUTRITIONAL COUNSELING CONTROL OF DENTAL DISEASE Routine 04/20/2024 9:40 AM EST Encounter for dental examination and cleaning without abnormal findings ORAL HYGIENE INSTRUCTIONS Routine 04/20/2024 9:40 AM EST Encounter for dental examination and cleaning without abnormal findings ORAL CANCER SCREENING Routine 04/20/2024 9:40 AM EST Encounter for dental examination and cleaning without abnormal findings CASE PRESENTATION SUBS DTL & EXTENSIVE TX PLN Routine 04/20/2024 9:40 AM EST Encounter for dental examination and cleaning without abnormal findings REFERRAL SCANNED DOCUMENT 04/19/2024 3:00 AM EST REFERRAL SCANNED DOCUMENT 04/09/2024 3:00 AM EST HISTORIC MAMMOGRAM 07/15/2023 3: 00 AM EDT HEPATITIS C ANTIBODY Routine 02/29/2020 4:36 PM EST Routine general medical examination at a health care facility PAP, LIQUID BASED Routine 03/09/2019 1:5 8 PM EST Well woman exam with routine gynecological exam ANTIBODY HIV-1&HIV-2 SINGLE RESULT Routine 10/20/2018 10:09 AM EDT Routine general medical examination at a health care facility from Last 3 Months or Most Recently Relevant to Health Maintenance Results * HGA1C W/EAG (06/27/2024 9:34 AM EDT) HEMOGLOBIN A1C 5.4 <5.7 % [facility] Comment: For the purpose of screening for the presence of diabetes: <5.7% ? Consistent with the absence of diabetes 5.7-6.4% ?Consistent with increased risk for diabetes ?(prediabetes) > or =6.5% ??Consistent with diabetes This assay result is consistent with a decreased risk of diabetes. Currently, no consensus exists regarding use of hemoglobin A1c for diagnosis of diabetes in children. According to [place] Diabetes Association (ADA) guidelines, hemoglobin A1c <7.0% represents optimal control in non- diabetic patients. Different metrics may apply to specific patient populations. Standards of Medical Care in Diabetes(ADA). ?? EAG (MG/DL) 108 mg/dL [facility] EAG (MMOL/L) 6.0 mmol/L [employer] [facility] [employer] Blood Blood / Unknown 06/27/2024 9 :34 AM EDT 06/27/2024 9:35 AM EDT Narrative [employer] - 06/28/2024 6:32 AM EDT FASTING:YES Inze Liu PROPERTY STAFF ACCOUNTANT LAB - BLOOD DRAW Ameya benson Result - Final Performing Organization Address [facility] de Phone Number Network18 [address] [address], [employer] [address] [address] * TSH W/RFLX FREE T4 (06/27/2024 9:34 AM EDT) TSH W/REFLEX TO FT4 1.50 0.40 - 4.50 mIU/L [facility] Comment: ?Reference Range ?> or = 20 Years ??0.40-4.50 ? Ranges ?First trimester ?0.26-2.66 ?Second trimester ?? 0.55-2.73 ?Third trimester ?0.43-2.91 Blood Blood / Unknown 06/27/2024 9 :34 AM EDT 06/27/2024 9:35 AM EDT Narrative [employer] [facility] - 06/28/2024 6:32 AM EDT FASTING:YES Inez Liu PROPERTY STAFF ACCOUNTANT LAB - BLOOD DRAW Ameya benson Result - Final Performing Organization Address City/[facility]/ZIP Co de Phone Number Network18 [facility] [address] [address], [employer] [address] [address] * LIPIDS W RFLX TO DIRECT LDL (06/27/2024 9:34 AM EDT) CHOLESTEROL, TOTAL 165 <200 mg/dL [facility] HDL CHOLESTEROL 60 > OR = 50 mg/dL [facility] TRIGLYCERIDES 127 <150 mg/dL [facility] LDL-CHOLESTEROL 83 99 mg/dL (calc) [facility] Comment: Reference range: <100 Desirable range <100 mg/dL for primary prevention; ?? <70 mg/dL for patients with CHD or diabetic patients with > or = 2 CHD risk factors. LDL-C is now calculated using the Jamari calculation, which is a validated novel method providing better accuracy than the Friedewald equation in the estimation of LDL-C. Izaiah SS et al. HUNG. 2013;310(76): 5488-1578 (http://education.[employer]/faq/HDX101) CHOL/HDLC RATIO 2.8 <5.0 (calc) [facility] NON-HDL CHOLESTEROL 105 <130 mg/dL (calc) [facility] Comment: For patients with diabetes plus 1 major ASCVD risk factor, treating to a non-HDL-C goal of <100 mg/dL (LDL-C of <70 mg/dL) is considered a therapeutic option. Blood Blood / Unknown 06/27/2024 9 :34 AM EDT 06/27/2024 9:35 AM EDT Narrative [employer] [facility] - 06/28/2024 6:32 AM EDT FASTING:YES Inez PLATT LAB - BLOOD DRAW Fin al Result [employer] [address] [address], [facility] [address] [address] * (ABNORMAL) URINALYSIS, COMPLETE W/REFLEX TO CULTURE (06/27/2024 9:34 AM EDT) COLOR DARK YELLOW YELLOW [facility] APPEARANCE TURBID(A) CLEAR [facility] SPECIFIC GRAVITY 1.035 1.001 - 1.035 [facility] URINE PH < OR = 5.0(A) 5.0 - 8.0 [facility] GLUCOSE NEGATIVE NEGATIVE [facility] BILIRUBIN NEGATIVE NEGATIVE [facility] KETONES NEGATIVE NEGATIVE [facility] OCCULT BLOOD 3+(A) NEGATIVE [facility] URINE PROTEIN 2+(A) NEGATIVE [facility] NITRITE NEGATIVE NEGATIVE [facility] LEUKOCYTE ESTERASE NEGATIVE NEGATIVE [facility] URINE LEUKOCYTES 0-5 0 - 5 /HPF [facility] RBC > OR = 60(A) < OR = 2 [facility] SQUAMOUS EPITHELIAL CELLS 10-20(A) < OR = 5 /HPF [facility] [employer] [facility] BACTERIA MANY(A) NONE SEEN [facility] CALCIUM OXALATE CRYSTALS MANY(A) NONE OR FEW [facility] URIC ACID CRYSTALS FEW NONE OR FEW [facility] HYALINE CAST 6-10(A) NONE SEEN /LPF [facility] SEE NOTE See Below [facility] Comment: This urine was analyzed for the presence of WBC, RBC, bacteria, casts, and other formed elements. Only those elements seen were reported. Urine Urine specimen / Unknown 06/27/2024 9:34 AM EDT 06/27/2024 9:35 AM EDT Narrative [facility] - 06/28/2024 6:32 AM EDT FASTING:YES us Inez PLATT LAB - NO BLOOD DRAW Edited Result - Final Performing Organization Address [facility]/ZIP Co de Phone Number Network18 [address] [address], [facility] [address] * RFLX - REFLEXIVE URINE CULTURE (06/27/2024 9:34 AM EDT) REFLEXIVE URINE CULTURE See Below [email or web address] [facility] Comment:NO CULTURE INDICATED 06/27/2024 9:34 AM EDT 06/27/2024 9:35 AM EDT Narrative [employer] [facility] - 06/28/2024 6:32 AM EDT FASTING:YES us Inez PLATT LAB - NO BLOOD DRAW Edited Result - Final Performing Organization Address City/[facility]/ZIP Co de Phone Number Network18 [facility] [address] [address], [employer] [address] [address] * (ABNORMAL) BLOOD COUNT COMPLETE AUTO&AUTO DIFRNTL WBC (06/27/2024 9:34 AM EDT) WHITE BLOOD CELL COUNT 6.4 3.8 - 10.8 Thousand/ uL [facility] RED BLOOD CELL COUNT 4.08 3.80 - 5.10 Million/u L [facility] HEMOGLOBIN 11.8 11.7 - 15.5 g/dL [facility] HEMATOCRIT 37.1 35.0 - 45.0 % [facility] MCV 90.9 80.0 - 100.0 fL [facility] MCH 28.9 27.0 - 33.0 pg [facility] MCHC 31.8(L) 32.0 - 36.0 g/dL [facility] Comment: For adults, a slight decrease in the calculated MCHC value (in the range of 30 to 32 g/dL) is most likely not clinically significant; however, it should be interpreted with caution in correlation with other red cell parameters and the patient's clinical condition. RDW 14.3 11.0 - 15.0 % [facility] PLATELET COUNT 338 140 - 400 Thousand/ uL [facility] MPV 9.9 7.5 - 12.5 fL [facility] ABSOLUTE NEUTROPHILS 3,187 1,500 - 7,800 cells/uL [facility] ABSOLUTE LYMPHOCYTES 2,554 850 - 3,900 cells/uL [facility] ABSOLUTE MONOCYTES 448 200 - 950 cells/uL [facility] ABSOLUTE EOSINOPHILS 141 15 - 500 cells/uL [facility] ABSOLUTE BASOPHILS 70 0 - 200 cells/uL [facility] NEUTROPHILS PCT 49.8 % QUES T [employer] LYMPHOCYTES 39.9 % [facility] [employer] [facility] MONOCYTES 7.0 % [facility] [employer] [facility] EOSINOPHILS 2.2 % [facility] AGNC[facility] BASOPHILS 1.1 % [employer] DI[facility] [employer] Blood Blood / Unknown 06/27/2024 9 :34 AM EDT 06/27/2024 9:35 AM EDT Narrative [facility] - 06/28/2024 6:32 AM EDT FASTING:YES Inez PLATT LAB - BLOOD DRAW Ameya benson Result - Final [facility] [address] [address], Network[facility] [address] [place] [address] * COMPREHENSIVE METABOLIC PANEL (06/27/2024 9:34 AM EDT) GLUCOSE 90 65 - 99 mg/dL [facility] Comment: ?Fasting reference interval UREA NITROGEN (BUN) 15 7 - 25 mg/dL [facility] CREATININE (blood) 0.63 0.50 - 0.99 mg/dL [facility] EGFR 112 > OR = 60 mL/min/1. 73m2 [facility] BUN/CREATININE RATIO SEE NOTE: [facility] Comment: ?? Not Reported: BUN and Creatinine are within ?? reference range. ? SODIUM 136 135 - 146 mmol/L [facility] POTASSIUM 3.5 3.5 - 5.3 mmol/L [facility] CHLORIDE 104 98 - 110 mmol/L [facility] CARBON DIOXIDE 26 20 - 32 mmol/L [facility] CALCIUM 9.0 8.6 - 10.2 mg/dL [facility] PROTEIN, TOTAL 7.6 6.1 - 8.1 g/dL [facility] ALBUMIN 4.2 3.6 - 5.1 g/dL [facility] GLOBULIN 3.4 1.9 - 3.7 g/dL (calc) [facility] ALBUMIN/GLOBULI N RATIO 1.2 1.0 - 2.5 (calc) [facility] BILIRUBIN, TOTAL 0.3 0.2 - 1.2 mg/dL [facility] ALKALINE PHOSPHATASE 89 31 - 125 U/L [facility] AST 12 10 - 30 U/L [facility] ALT 15 6 - 29 U/L [facility] Blood Blood / Unknown 06/27/2024 9 :34 AM EDT 06/27/2024 9:35 AM EDT Narrative [employer] [facility] - 06/28/2024 6:32 AM EDT FASTING:YES Inez PLATT LAB - BLOOD DRAW Fin al Result [facility] [address] [address], [employer] [facility] [address] [place] [address] * REFERRAL SCANNED DOCUMENT (04/19/2024 3:00 AM EST) Only the most recent of2 resultswithin the time period is included. 04/19/2024 3:00 AM EST [facility] Provider Default SCAN REFERRAL Final Resu lt * HISTORIC MAMMOGRAM (07/15/2023 3:00 AM EDT) 07/15/2023 3:00 AM EDT Riya Mcmanus [facility] IMG MAMMO Edited Result - Final * HEPATITIS C ANTIBODY (02/29/2020 4:36 PM EST) HEPATITIS C VIRUS SCREEN NEGATIVE NEGATIVE [facility] Blood Blood / Unknown 02/29/2020 4 :36 PM EST 02/29/2020 7:29 PM EST Narrative [facility] 02/29/2020 8:45 PM EST [employer], a member of [address] [address] Fleet Manager/Dispatch - Lesvia Whitehead MD PT ID [id number] ORD# [id number] Riya Mcmanus [facility] LAB - BLOOD DRAW Final Result [address] [address], * PAP, LIQUID BASED (03/09/2019 1:58 PM EST) PAP Negative NORMAL - ABNORMAL [facility] Specimen from uterine cervix (specimen) Cervix uteri structure / Unknown 03/09/2019 1:58 PM EST Impressions [facility] - 03/09/2019 4:30 PM EST ThinPrep Pap,Imaged:Negative for squamous intraepithelial lesion and malignancy. Clue cells are present. HPV:Negative Chlamydia:Negative N.Gonorrhoeae:Negative Riya Mcmanus [facility] LAB - NO BLOOD DRAW Edited Res ult - Final Performing Organization Address [facility]/ZIP Co de Phone Number [facility] [address] [address], * HIV-1 & HIV-2 ANTIBODIES (10/20/2018 10:09 AM EDT) HIV 1 AND 2 ANTIBODY SCREEN NEGATIVE NEGATIVE [employer] [facility] Comment: This assay is a 4th generation assay allowing for earlier detection of HIV infection by detecting the presence of the HIV-1 p24 antigen as well as the traditional antibodies to HIV type 1 (including group O) and type 2. ??Use of a 4th generation assay is the current CDC recommendation for HIV screening. Blood specimen (specimen) Blood / Unknown 10/20/2018 10:09 AM EDT 10/20/2018 11:03 AM EDT Narrative [facility] - 10/20/2018 4:45 PM EDT [employer], a member of [address] [address] Fleet Manager/Dispatch - Lesvia Whitehead MD [place] ID [id number] ORD# [id number] Riya Mcmanus [facility] - BLOOD DRAW Final Result Performing Organization Address [facility] Co de Phone Number [facility] [employer] [address], [place] [phone] from Last 3 Months or Most Recently Relevant to Health Maintenance [place] [facility] [address] ACO Care Teams Drop Wire Hanger Relationship Specialty Start Date End Date Riya Mcmanus FNP [address] [place] [address] PCP - General Internal Medicine 07/05/18
--- NOTE | 2024-06-28 08:06 | MHC.OFFVIS ---
Vital Signs 06/28/24 08:07 Height 5 ft 4 in Weight 262 lb BMI 45.0 BP 90/68 Blood Pressure Location Lt brachial Pulse 79 Pulse Source Pulse Oximeter Pulse Oximetry (%) 98 Oxygen Delivery Method Room Air Intake Visit Reasons: Follow Up Intake Note: Patient presents follow up for migraine/seizures. Legal Word Processor Required: No Accompanied by: Self / Same As Patient Allergies diphenhydramine Allergy (Intermediate, Verified 12/07/23 07:52) HIVES Penicillins Allergy (Intermediate, Verified 12/07/23 07:52) HIVES [facility] Medical History (Updated 12/11/23 @ 19:17 by GIULIA Lynch) delivery due to maternal disorder Surgical History (Updated 06/28/24 @ 08:10 by Lili Duque CMA) History of carpal tunnel release History of section Family History Father Hypertension Mother Hypertension Cancer Diabetes Social History Alcohol intake: never Patient Tobacco Use Status: Never used Tobacco Coding
[2024-06-28 08:07] VITALS: BP 90/68; PULSE 79; O2SAT 98; BMI 45.0
--- NOTE | 2024-06-28 08:20 | A.OFFVIS_ITS ---
Vital Signs 06/28/24 08:07 Height 5 ft 4 in Weight 262 lb BMI 45.0 BP 90/68 Blood Pressure Location Lt brachial Pulse 79 Pulse Source Pulse Oximeter Pulse Oximetry (%) 98 Oxygen Delivery Method Room Air Intake Visit Reasons: Follow Up Allergies diphenhydramine Allergy (Intermediate, Verified 12/07/23 07:52) HIVES Penicillins Allergy (Intermediate, Verified 12/07/23 07:52) HIVES Medication List - Last Reconciled 06/28/24 by GIULIA Lynch atogepant 60 mg PO DAILY 30 days atogepant (Qulipta) 60 mg PO DAILY buspirone 15 mg PO TID cetirizine 10 mg PO DAILY PRN clonazepam 2 mg PO For seizure activity lasting more than 2 minutes, may repeat x1 and call 911 30 days clonazepam 0.25 - 0.5 mg (0.5 - 1 x 0.5 mg) PO BEDTIME PRN 30 days dextroamphetamine-amphetamine 30 mg ER (Adderall XR) 30 mg PO DAILY fluticasone furoate-vilanterol 100-25 mcg/dose (Breo Ellipta) 1 inh inhalation DAILY ibuprofen 800 mg PO Q8H insulin syringe-needle U-100 w/ sumatriptan solution. As directed levothyroxine 75 mcg PO DAILY lorazepam 0.5 mg PO BEDTIME PRN 30 days magnesium oxide 400 mg PO BEDTIME 30 days meloxicam 15 mg PO DAILY methocarbamol 750 mg PO Q8H metoclopramide HCl 5 mg PO Q4-6H PRN 30 days oxcarbazepine 600 mg PO BID 90 days oxcarbazepine (Trileptal) 600 mg (2 x 300 mg) PO BID 30 days phentermine 37.5 mg PO DAILY propranolol 10 mg PO BID 30 days riboflavin (vitamin B2) (Vitamin B-2) 200 mg (2 x 100 mg) PO BID 30 days sumatriptan 5 mg/actuation 5 mg intranasal Q2-4H PRN 30 days MDD 40mg/day sumatriptan succinate 6 mg (0.5 mL) subcut ONCE PRN 28 days MDD 12mg topiramate 100 mg (2 x 50 mg) PO BEDTIME 30 days trazodone 100 mg PO DAILY HPI Comments Details: 43-yr-old female presents for f/u visit of migraine and seizure. Pt reports she underwent LUE carpal tunnel repair in Jan and then RUE CTR approx 4 weeks ago. She notes elvis right hand/wrist is still sore, but was told this was to be expected. Pt reports she had a sleep study through [facility], was started on CPAP, which she is using and sleeping better with it. She does note some insomnia, but is trying to work on her sleep hygiene. Even with using CPAP she is prone to biting the side of her tongue and inner cheeks- she states her may wake her up, but is not aware of any tonic- clonic/convulsive activity a/w the tongue/cheek biting. She reports she needs to return her CPAP machine to [facility] in July- but is unsure why. She states she does not have a f/u w/ [facility]. Her ResMed Renu shows good overall use- however I am unable to access her PAP compliance report today. Resmed CPAP SN [id number] Her psychiatrist increased her Adderall XR to 30mg qam, which is helping her focus. She believes she had a very mild seizure in March- unsure what might have triggered it, other than she was having a week of very bad migraine. She is compliant w/ Trileptal at 10am and 10pm. She is having 1-2 migraine attacks per week, which are not typically as strong and or lasting as long. Headaches are typically resolving within a day, she is usually able to do her activities during her migraine. Sometimes wakes up with a headache. She states sumatriptan nasal and injection are effective, notes the site of the 1st treatment site of actually been effective for her migraine attacks. She does ask if there is anything she can take with the sumatriptan. She does not recall trialing the previously order diclofenac. She states she did not tolerate metoclopramide at all, it made her feel drowsy and worse. She takes her Qulipta daily at 8 p.m.. Baseline migraine characteristics: Starts as pain in left eye and progresses into the left side of head and if more severe moves into back of head/neck, a/w photophobia, phonophobia, nausea, activity intolerance, when more severe vomiting, dizziness, slowed speech. [facility] Medical History (Updated 06/28/24 @ 09:30 by GIULIA Lynch) delivery due to maternal disorder Surgical History (Updated 06/28/24 @ 08:10 by Lili Duque CMA) History of carpal tunnel release History of section Family History Father Hypertension Mother Hypertension Cancer Diabetes Social History Alcohol intake: never Patient Tobacco Use Status: Never used Tobacco Physical Exam Vital Signs: Last Vital Signs Pulse 79 06/28/24 08:07 BP 90/68 06/28/24 08:07 Pulse Ox 98 06/28/24 08:07 Oxygen Delivery Method Room Air 06/28/24 08:07 BMI result Body Mass Index 45.0 Const General: cooperative and no acute distress Orientation/consciousness: patient oriented x3 Resp Effort & Inspection: normal respiratory effort and able to speak in complete sentences Neuro General: patient oriented x3 Cranial nerves: Yes CN's II-XII intact bilaterally Cognition (Neuro): normal cognition Gait exam (Neuro): Normal gait present Motor exam (neuro): 5/5 motor strength present throughout Psych Appearance: grossly normal Mental Status: mental status grossly normal Speech and movement: Normal speech and movement present Affect: normal affect Attitude: cooperative Assessment & Plan Assessment & Plan (1) Chronic migraine with aura: Comment: rare visual aura Code(s): G43.109 - Migraine with aura, not intractable, without status migrainosus Category: Medical (2) Seizure: Code(s): R56.9 - Unspecified convulsions Category: Medical (3) Sleep difficulties: Code(s): G47.9 - Sleep disorder, unspecified Category: Medical (4) Cognitive dysfunction: Comment: likely ADHD Code(s): F09 - Unspecified mental disorder due to known physiological condition Category: Medical (5) Obstructive sleep apnea: Comment: 05/21/2020 HST AHI 12/hr, 82%. Code(s): G47.33 - Obstructive sleep apnea (adult) (pediatric) Category: Medical Plan Psychiatry is now managing pt's cognitive/mood tx. For episodes of AMS/seizures-like activity: Continue Trileptal 600mg po q 12 hrs. Stressed compliance. Pt should not drive or engage in high risk activities x's 6 months following last seizure activity. Previous tx's: Topiramate worsened cognitive difficulties. ? For migraine prevention: Continue Qulipta 60mg qhs, as patient is having good effect from use with greater than 50% reduction in monthly migraine days and migraine attacks are less severe and shorter in duration.. Continue riboflavin 200 mg twice a day- for migraine prevention. Continue magnesium 400 mg daily at bedtime- for migraine prevention. Pt has had genetics consult- for ? [facility]- results not currently available. Previously did not tolerate Amitriptyline or Propranolol. Topiramate worsened cognitive difficulties. Ajovy lost effectiveness. ? For acute migraine tx: Continue Sumatriptan 5mg nasal spray- MR x's 1, as migraine is a/w nausea. Continue Sumatriptan 6mg sc inj, MR in 1 hr- max 12mg/day, as migraine is a/w nausea. May take sumatriptan with OTC Tylenol 650-1,000mg every 4-6 hours, Ibuprofen (liquid gels) 600mg every 6 hours, or Naproxen (liquid gels) 440mg q 12 hrs prn. Hold Diclofenac 50mg po bid prn order- unclear if patient has tried this before. Discontinue Metoclopramide 5mg- not tolerated- cause drowsiness/and made the patient feel worse. May use OTC NSAIDs prn. Previous acute tx trials: Sumatriptan tab- not tolerated. Narartriptan- ineffective. Rizatriptan- ineffective. ? ? For SUDHEER/sleep- We reached out to [facility] home [facility], they stated patient was not initially compliant with her CPAP machine, however there is no requirement for her to retu rn the machine at this point. [facility] will forward us her compliance report data. Continue PAP therapy, as patient is sleeping better with the use. For nocturnal lateral tongue and energy biting, patient advised to try using a mouth guard. Patient advised to notify us if she is having any nocturnal tonic- clonic/convulsive episodes during sleep. Previously tx trials- Pt previously stopped Trazodone- d/t this may worsen headaches. Clonazepam 0.5mg tab- caused am sleepiness. Patient previously returned last APAP machine. Will follow-up upon review of above and patient to follow-up in clinic in 6 months or sooner prn.? Medications: Refilled sumatriptan 5 mg/actuation into one nostril; if headache remains, may repeat dose into other nostril once after at least 2 hours 5 mg intranasal Q2-4H 30 days PRN 6 ea 6RF migraine headache MDD 40mg/day sumatriptan succinate may repeat x's 1 in 1 hr 6 mg (0.5 mL) subcut ONCE 28 days PRN 10 mL 6RF migraine headache MDD 12mg atogepant 60 mg PO DAILY 30 days 30 tabs 6RF Discontinued metoclopramide HCl Discontinued Reason: Doctor's Order 5 mg PO Q4-6H 30 days PRN 30 tabs 3RF migraine, nausea and vomiting Coding Level of Care Code Est Pt Level 4 (32854) Diagnoses Chronic migraine with aura G43.109 Seizure R56.9 Sleep difficulties G47.9 Cognitive dysfunction F09 Obstructive sleep apnea G47.33
== END 2024-06-28 08:50 | disposition home or self-care (01) ==
LOC: HO.HSMS 08:02
PROVIDERS: PCP Nurse Practitioner Family; Visit Provider Nurse Practitioner Family
DX: G43.109 Migraine with aura, not intractable, without status migrainosus (principal); R56.9 Unspecified convulsions; G47.9 Sleep disorder, unspecified; R41.89 Other symptoms and signs involving cognitive functions and awareness; G47.33 Obstructive sleep apnea (adult) (pediatric)
CPT/HCPCS: 99214

== ENCOUNTER → 2024-06-28 08:02 | Outpatient (BNVA) | payer MEDICAID, SELFPAY | PROVIDERS: PCP Nurse Practitioner Family; Visit Provider Nurse Practitioner Family | DX: G43.109 Migraine with aura, not intractable, without status migrainosus (principal); R56.9 Unspecified convulsions; G47.33 Obstructive sleep apnea (adult) (pediatric); F09 Unspecified mental disorder due to known physiological condition; Z99.89 Dependence on other enabling machines and devices | CPT/HCPCS: 99212 ==